=== PATIENT | female | born 1960 | race Caucasian/White ===

== ENCOUNTER 2016-08-06 13:41 | Inpatient (IN) ==
[2016-08-06] MEDS ORDERED: Naloxone 0.4 MG/ML INJ IVP PRN (16:44)
--- NOTE | 2016-08-06 17:02 | Internal Med History&Physical ---
Date of Encounter: 08/06/16 Time of Encounter: 16:30 Assessment and Plan (1) Acute osteomyelitis of right calcaneus Status: Acute Admit for osteomyelitits of right calcaneus. Dr. Freire to plan on taking patient to surgery on 08/08/16 for an I&D of the right calcanues and for specific bone biopsy and culture. Will start antibiotics after intraop cultures obtained. Wound care to include cleansing right heel daily with saline, pat dry, apply mesalt ribbon with 4x4 dry sterile gauze and kerlix. Keep right heel elevated away from direct pressure. (2) Hypertension Status: Chronic Hospitalist consulted. Qualifiers: Hypertension type: essential hypertension Qualified Code(s): I10 - Essential (primary) hypertension (3) COPD (chronic obstructive pulmonary disease) Status: Chronic Hospitalist consulted. Qualifiers: COPD type: unspecified COPD Qualified Code(s): J44.9 - Chronic obstructive pulmonary disease, unspecified (4) Pressure ulcer of left buttock, stage 3 Status: Acute Wound care consulted. Saline wet to dry gauze dressing applied. Internal Medicine - H&P: HPI Chief complaint: Osteomyelitis of right calcaneus Admitted From: Home Plans for Post Hospital Care: Home History of present illness: Ms. Jha is a 56 year old female admitted to [facility] on 08/06/16 for osteomyelitis of the right calcanues. Patient has a medical history significant for HTN, COPD, spina bifida, anxiety and depression. Patient has a surgical history of left BKA and a stoma. Patient states she self catheterizes herself. Patient was being treated in wound care by Dr. Freire for an ulceration to the right heel and was a direct admit today for a further workup and for specific bone biopsy and culture. Dr. Freire to plan on taking patient to surgery for an I&D on 08/08/16. Patient states ulceration of the right heel started a few months ago. Patient states she was being treated by Dr. Gerardo for a decubitus ulcer of the left buttocks and right heel. She was referred to Dr. Freire for regression of ulceration to the right. Patient states she is applying saline wet to dry dressings herself to the left buttocks. No c/o fever , chills, cp, sob or n/v/d. She states she is getting over some chest congestion. Past Med Surg Social Fam HX - Past Medical History Medical history: arthritis, COPD, hypertension, other (spina bifida) Psychiatric history: anxiety, depression - Past Surgical History Surgical History: other (Left foot amputation) - Social History Smoking Status: Current every day smoker Packs per day: 1 Smokeless Tobacco Status: No Alcohol use: rarely Drug use: none Current living situation: Home - Independent Activity Level: Other (uses a walking stick) - Family History Mother Name: caitlin Age: 76 Living Status: Still Living Hx Family Cardiac Disorders: No Hx Family Respiratory Disorders: No Hx Family Cancer: No Hx Family GI Disorders: No Hx Family Genitourinary Disorders: No Hx Family Endocrine Disorder: No Hx Family Musculoskeletal Disorders: No Hx Family Neuromuscular Disorders: No Hx Family Neurologic Disorders: No Hx Family HEENT Disorders: No Hx Family Autoimmune Disorders: No Hx Family Reproductive Disorders: No Hx Family Psychosocial Disorders: No Hx Family Medical Disorders: No Father Living Status: Age at : 57 Cause of : alcohol abuse; resp failure; heart failure Hx Family Cardiac Disorders: Yes Hx Family Respiratory Disorders: Yes Hx Family Cancer: No Hx Family GI Disorders: No Hx Family Genitourinary Disorders: No Hx Family Endocrine Disorder: No Hx Family Musculoskeletal Disorders: No Hx Family Neuromuscular Disorders: No Hx Family Neurologic Disorders: No Hx Family HEENT Disorders: No Hx Family Autoimmune Disorders: No Hx Family Reproductive Disorders: No Hx Family Psychosocial Disorders: No Hx Family Medical Disorders: No Internal Medicine - H&P: Meds Albuterol Sulfate [Proair Hfa] 1 - 2 puff IH Q6H PRN 01/17/16 [History] Alprazolam [Xanax 1 MG Tablet] 1 mg PO BID PRN 01/17/16 [History] Citalopram Hydrobromide [Celexa] 40 mg PO DAILY 01/17/16 [History] Cyclobenzaprine [Flexeril] 10 mg PO TID 01/17/16 [History] Ibuprofen [Advil] 200 mg PO TID PRN 01/17/16 [History] Oxybutynin Chloride [Ditropan Xl] 10 mg PO DAILY PRN 01/17/16 [History] Oxycodone HCl/Acetaminophen [Percocet 7.5-325 mg Tablet] 1 tab PO TID PRN [History] Temazepam [Restoril] 30 mg PO HS 01/17/16 [History] Varenicline Tartrate [Chantix] 1 mg PO BID 01/17/16 [History] BuPROPion XL (24 HR) [Wellbutrin Xl] 150 mg PO DAILY 08/06/16 [History] Losartan/Hydrochlorothiazide [Hyzaar 100-12.5 Tablet] 1 each PO DAILY 08/06/16 [ History] Oxycodone HCl/Acetaminophen [Percocet 5-325 mg Tablet] 1 each PO QID PRN #16 tablet 08/12/16 [Rx] Vancomycin [Vancocin] 1 each IV AD #14 vial 08/12/16 [Rx] Vancomycin [Vancocin] 1 each IV DAILY #21 vial 08/12/16 [Rx] Allergies morphine Allergy (Verified 04/19/15 08:57) Hives All Systems PM: A 10-system review of systems was performed and is negative for pertinent findings except as documented above in the HPI. - Constitutional Constitutional: no chills, no fever(s), no night sweats - EENT Eyes: no change in vision, no discharge, no pain, no photophobia Additional comments: wears upper dentures - Cardiovascular Cardiovascular ROS IM: no chest pain, no diaphoresis, no dyspnea, no lightheadedness, no palpitations - Respiratory Respiratory: no cough, no dyspnea, no wheezing Additional comments: states getting over chest congestion. - Gastrointestinal Gastrointestinal: no abdominal pain, no diarrhea, no nausea, no vomiting - Genitourinary Additional comments: self cath - Integumentary Integumentary IM: as per HPI - Neurological Neurological ROS: convulsions, no confusion, no numbness, no tingling - Psychiatric Psychiatric: anxiety, depression - Constitutional Vitals: Temp Pulse Resp BP Pulse Ox 97.8 F 86 18 119/85 97 08/06/16 15:30 08/06/16 15:30 08/06/16 15:30 08/06/16 15:30 08/06/16 15:30 General appearance: Present: A&O X 3, pleasant, no acute distress - Head Head exam: Present: atraumatic, normocephalic - Eye Eye exam: Present: PERRL, conjuntiva pink, sclera anicteric - ENT ENT exam: Present: normal exam - Respiratory Respiratory exam: Present: decreased breath sounds (to bilateral lower lobes ) - Cardiovascular Cardiovascular exam: Present: RRR, +S1, +S2 - GI/Abdominal GI/Abdominal exam: Present: normal bowel sounds, soft, no peritoneal signs. Absent: distended, tenderness - Expanded Lower Extremities Exam Ankle exam: Present: deformity (history of left foot amputation.) Foot/Toe exam: Present: swelling (Full thickness ulceration to the right calcanues, plantar aspect measuring 0.2 cm in length x 0.2 cm in width x 2.5 cm in depth, no periwound erythema, no purulent drainage, no odor, no warmth. . Weak plantar flexion of right foot. Epicritic and vibratory sensation intact. Pedal pulses 1+/4 DP right foot. ) - Skin Additional comments: Stage III decubitus ulcer to the left buttocks measuring 3 cm in length x 2 cm in width x 1.8 cm in depth, circumferential undermining 0.5 cm, tunneling at 10 o'clock measuring 1.5 cm. Base of wound is beefy red. No purulent drainage , no odor, no warmth. Internal Med - H&P Results - Labs CBC & Chem 7: 08/10/16 03:55 08/10/16 03:55
[2016-08-06 17:21] LABS: Basophils % 0.7 %; Eosinophils # 0.2 K/mcL (0.0-0.6); Hematocrit 35.7 % (35.3-44.9); Hemoglobin 11.2 g/dL (11.5-15.4); Immature Granulocytes % 0.8 % (0-4); Lymphocytes # 1.3 K/mcL (0.6-4.6); Lymphocytes % 22.1 %; Mean Corpuscular HGB Conc 31.4 g/dL (31.6-35.5); Mean Corpuscular Hemoglobin 28.3 pg (28.0-33.3); Mean Corpuscular Volume 90.2 fL (83.0-100.0); Mean Platelet Volume 8.8 fL (9.4-12.4); Monocytes # 0.6 K/mcL (0.0-1.3); Monocytes % 9.6 %; Neutrophils # 3.9 K/mcL (1.6-8.9); Platelet Count 445 K/mcL (140-400); Red Blood Count 3.96 M/mcL (3.82-4.97); Red Cell Distribution Width 13.2 % (11.5-14.5); Segmented Neutrophils % 63.8 %
[2016-08-06 17:36] LABS: BUN/Creatinine Ratio 26 (6-26); Blood Urea Nitrogen 20 mg/dL (7-20); Calcium 9.4 mg/dL (8.6-10.8); Carbon Dioxide 24 mEq/L (19-29); Chloride 106 mEq/L (98-109); Glucose 118 mg/dL (70-99); Osmolality,Calculated 294 (280-300); Potassium 3.8 mEq/L (3.5-4.5); Sodium 140 mEq/L (136-145); eGFR For African Americans > 60 (> 60); eGFR For Non-African Americans > 60 (> 60)
[2016-08-06] MEDS ORDERED: *HR* OxyCODONE/APAP 7.5/325 TABLET PO PRN ×2 (19:41→21:44)
[2016-08-06] MEDS ORDERED: Ibuprofen 200 MG TABLET PO PRN ×2 (21:44→22:01)
--- NOTE | 2016-08-06 21:58 | Internal Medicine Consult Note ---
Date of Encounter: 08/06/16 Time of Encounter: 21:55 - Assessment and Plan (1) Acute osteomyelitis of right calcaneus Current Visit: Yes Status: Acute Assessment and plan: Dr. Freire of Podiatry is planning debridement on 08/08. Continue home doses of Oxycodone/acetaminophen PRN for moderate pain and ibuprofen PRN for mild pain Narcan PRN for respiratory depression. (2) Hypertension Current Visit: Yes Status: Chronic Assessment and plan: Continue home doses of Losartan and HCTZ Qualifiers: Hypertension type: essential hypertension Qualified Code(s): I10 - Essential (primary) hypertension (3) COPD (chronic obstructive pulmonary disease) Current Visit: Yes Status: Chronic Assessment and plan: Patient is satting 95-97% on room air and denies any increased shortness of breath from her baseline. She does report some upper respiratory congestion. Continue home dose of PRN Albuterol. Duonebs Q6 hr PRN Incentive spirometry Mucinex 600mg BID Qualifiers: COPD type: unspecified COPD Qualified Code(s): J44.9 - Chronic obstructive pulmonary disease, unspecified (4) Depression Current Visit: Yes Status: Acute Assessment and plan: Continue home doses of Celexa and Wellbutrin Qualifiers: Depression Type: major depressive disorder Major depression recurrence: recurrent Active/Remission status: remission status unspecified Qualified Code(s): F33.9 - Major depressive disorder, recurrent, unspecified (5) Smoker Current Visit: Yes Status: Acute Assessment and plan: Patient smoked 1PPD since age 15. She is trying to quit, taking Chantix. Continue home dose of Chantix. (6) Anxiety Current Visit: Yes Status: Acute Assessment and plan: continue home dose of Xanax PRN. (7) DVT prophylaxis Current Visit: Yes Status: Acute Assessment and plan: Up to chair BID Sequential compression devices Internal Medicine - CN: HPI - Data of Consult Consult date: 08/06/16 Requesting Physician: Ancelmo Freire, - Consult Narrative Reason for consult: medical management History of present illness: Ms. Jha is a 56 year old female with hypertension, COPD, history of spina bifida, left BKA, right heel osteomyelitis who is admitted for planned debridement of right heel ulcer and bone biopsy and treatment of osteomyelitis under Dr. Freire's podiatry service. We have been consultative to manage her medical conditions while she is admitted. She reports she has little cough and congestion that is resolving. She reports occasional shortness of breath associated with her diagnosis of COPD, unchanged from her baseline. She denies any fever, chills, sweats, body aches. Patient self catheters 7 times a day and denies any dysuria or UTI symptoms at this time. Right heel ulcer has been examined and dressed by primary service as well as her stage III pressure ulcer on her buttocks. On exam, patient is alert and oriented, in no acute distress. Lungs are clear bilaterally to auscultation, heart has regular rate and rhythm. Past Med Surg Social Fam HX - Past Medical History Medical history: arthritis, COPD, hypertension, other (spina bifida) Psychiatric history: anxiety, depression - Past Surgical History Surgical History: other (Left BKA, multiple debridements, spine surgery, urostomy placement and takedown) - Social History Smoking Status: Current every day smoker Packs per day: 1 Smokeless Tobacco Status: No Alcohol use: rarely Drug use: none - Family History Mother Name: caitlin Age: 76 Living Status: Still Living Hx Family Cardiac Disorders: No Hx Family Respiratory Disorders: No Hx Family Cancer: No Hx Family GI Disorders: No Hx Family Genitourinary Disorders: No Hx Family Endocrine Disorder: No Hx Family Musculoskeletal Disorders: No Hx Family Neuromuscular Disorders: No Hx Family Neurologic Disorders: No Hx Family HEENT Disorders: No Hx Family Autoimmune Disorders: No Hx Family Reproductive Disorders: No Hx Family Psychosocial Disorders: No Hx Family Medical Disorders: No Father Living Status: Age at : 57 Cause of : alcohol abuse; resp failure; heart failure Hx Family Cardiac Disorders: Yes Hx Family Respiratory Disorders: Yes Hx Family Cancer: No Hx Family GI Disorders: No Hx Family Genitourinary Disorders: No Hx Family Endocrine Disorder: No Hx Family Musculoskeletal Disorders: No Hx Family Neuromuscular Disorders: No Hx Family Neurologic Disorders: No Hx Family HEENT Disorders: No Hx Family Autoimmune Disorders: No Hx Family Reproductive Disorders: No Hx Family Psychosocial Disorders: No Hx Family Medical Disorders: No - Constitutional Constitutional: no chills, no fever(s), no night sweats - EENT Eyes: no change in vision, no discharge, no pain Ears: no ear pain, no tinnitus Nose, mouth and throat: nasal congestion, nasal discharge, no sore throat - Cardiovascular Cardiovascular ROS IM: no chest pain, no dyspnea, no lightheadedness, no palpitations, no syncope - Respiratory Respiratory: cough, dyspnea on exertion, no wheezing, no chest congestion, no excessive phlegm production, no change in phlegm color - Gastrointestinal Gastrointestinal: no abdominal pain, no diarrhea, no loose stools, no melena, no nausea, no vomiting - Genitourinary Genitourinary: no dysuria, no hematuria - Musculoskeletal Musculoskeletal ROS IM: no muscle weakness, no numbness, no tingling - Integumentary Integumentary IM: non-healing lesions, skin ulcer - Neurological Neurological ROS: no confusion, no convulsions, no focal weakness, no numbness, no tingling - Hematologic/Lymphatic Hematologic/Lymphatic: no easy bruising Internal Medicine - CN: Meds Albuterol Sulfate [Proair Hfa] 1 - 2 puff IH Q6H PRN 01/17/16 [History] Alprazolam [Xanax 1 MG Tablet] 1 mg PO BID PRN 01/17/16 [History] Citalopram Hydrobromide [Celexa] 40 mg PO DAILY 01/17/16 [History] Cyclobenzaprine [Flexeril] 10 mg PO TID 01/17/16 [History] Ibuprofen [Advil] 200 mg PO TID PRN 01/17/16 [History] Oxybutynin Chloride [Ditropan Xl] 10 mg PO DAILY PRN 01/17/16 [History] Oxycodone HCl/Acetaminophen [Percocet 7.5-325 mg Tablet] 1 tab PO TID PRN [History] Temazepam [Restoril] 30 mg PO HS 01/17/16 [History] Varenicline Tartrate [Chantix] 1 mg PO BID 01/17/16 [History] BuPROPion XL (24 HR) [Wellbutrin XL] 150 mg PO DAILY 08/06/16 [History] Losartan/Hydrochlorothiazide [Hyzaar 100-12.5 Tablet] 1 each PO DAILY 08/06/16 [ History] Allergies morphine Allergy (Verified 04/19/15 08:57) Hives Internal Medicine - CN: Exam - Constitutional Vitals: Temp Pulse Resp BP Pulse Ox 98.2 F 104 18 138/62 95 08/06/16 19:30 08/06/16 19:30 08/06/16 19:30 08/06/16 19:30 08/06/16 19:30 General appearance IM: Present: A&O X 3, pleasant, no acute distress - Head Head exam: Present: atraumatic, normocephalic - Eye Eye exam: Present: PERRL, conjuntiva pink, sclera anicteric Pupils: Present: PERRL - ENT ENT exam: Present: mucous membranes moist - Neck Neck exam general surgery: Present: supple, trachea midline - Respiratory Respiratory exam: Present: CTAB. Absent: rales, respiratory distress, rhonchi, wheezes, tachypnea - Cardiovascular Cardiovascular exam IM: Present: RRR, +S1, +S2. Absent: bradycardia, clicks, gallop, tachycardia - GI/Abdominal GI/Abdominal exam IM: Present: normal bowel sounds, no peritoneal signs. Absent : distended, tenderness - Extremities Exam Extremities exam IM: Present: warm, radial pulses palpable and symetrical. Absent: calf tenderness, tenderness Additional comments: Left BKA just above ankle. right heel dressed and wrapped, dressing clean, dry and intact - Back Exam Additional comments: dressing intact on pressure ulcer. - Neurological Exam Neurological exam: Present: alert, CN II-XII intact, oriented X3, no focal deficits. Absent: facial droop, speech deficit Internal Medicine - CN: Reslt - Labs CBC & Chem 7: 08/06/16 17:08 08/06/16 17:08 Labs: Short CBC 08/06/16 Range/Units 17:08 WBC 6.1 (4.3-11.1) K/mcL Hgb 11.2 L (11.5-15.4) g/dL Hct 35.7 (35.3-44.9) % Plt Count 445 H (140-400) K/mcL Neutrophils # 3.9 (1.6-8.9) K/mcL BMP 08/06/16 17:08 Sodium 140 Potassium 3.8 Chloride 106 Carbon Dioxide 24 BUN 20 Creatinine 0.78 Glucose 118 H Calcium 9.4 Consult Discharge Plan - Plan Referrals: Leonardo Mayfield MD [Primary Care Provider] -
[2016-08-06] MEDS: *HR* OxyCODONE/APAP 7.5/325 TABLET PO PRN (22:47)
[2016-08-06] MEDS: ALPRAZolam 1 MG TABLET PO PRN (22:48)
[2016-08-06] MEDS ORDERED: Ipratropium/Albuterol Neb 3 ML IH PRN (23:00)
[2016-08-07] MEDS: hydroCHLOROthiazide 25 MG TABLET PO SCH (08:00)
[2016-08-07] MEDS: *HR* OxyCODONE/APAP 7.5/325 TABLET PO PRN ×2 (08:23→20:42)
[2016-08-07] MEDS ORDERED: NON-FORMULARY MEDICATION 1 EACH EACH (Losartan/Hydrochlorothiazide [Hyzaar 100-12.5 Tablet PO SCH (09:00)
[2016-08-07] MEDS ORDERED: BuPROPion XL (24 HR) 150 MG TABLET PO SCH (09:00)
[2016-08-07 09:10] LABS: Basophils % 0.6 %; Eosinophils # 0.2 K/mcL (0.0-0.6); Eosinophils % 3.2 %; Hematocrit 34.4 % (35.3-44.9); Hemoglobin 11.1 g/dL (11.5-15.4); Immature Granulocytes % 0.7 % (0-4); Lymphocytes # 1.7 K/mcL (0.6-4.6); Lymphocytes % 30.9 %; Mean Corpuscular HGB Conc 32.3 g/dL (31.6-35.5); Mean Corpuscular Hemoglobin 28.9 pg (28.0-33.3); Mean Corpuscular Volume 89.6 fL (83.0-100.0); Monocytes # 0.4 K/mcL (0.0-1.3); Monocytes % 7.4 %; Neutrophils # 3.1 K/mcL (1.6-8.9); Platelet Count 410 K/mcL (140-400); Red Blood Count 3.84 M/mcL (3.82-4.97); Red Cell Distribution Width 13.3 % (11.5-14.5); Segmented Neutrophils % 57.2 %
[2016-08-07 09:26] LABS: Alanine Aminotransferase 7 Units/L (0-55); Albumin 2.4 g/dL (3.5-5.0); Albumin/Globulin Ratio 0.5 (1.1-2.2); Alkaline Phosphatase 18 Units/L (38-126); Aspartate Amino Transferase 10 Units/L (5-34); BUN/Creatinine Ratio 22 (6-26); Bilirubin,Total 0.2 mg/dL (0.2-1.2); Blood Urea Nitrogen 17 mg/dL (7-20); Calcium 8.7 mg/dL (8.6-10.8); Carbon Dioxide 23 mEq/L (19-29); Chloride 107 mEq/L (98-109); Globulin 4.9 g/dL (2.4-3.5); Glucose 207 mg/dL (70-99); Osmolality,Calculated 294 (280-300); Potassium 3.4 mEq/L (3.5-4.5); Sodium 138 mEq/L (136-145); Total Protein 7.3 g/dL (6.0-8.3); eGFR For African Americans > 60 (> 60); eGFR For Non-African Americans > 60 (> 60)
--- NOTE | 2016-08-07 12:12 | Podiatry Progress Note ---
Date of Encounter: 08/07/16 Time of Encounter: 11:30 - Assessment and Plan (1) Acute osteomyelitis of right calcaneus Current Visit: Yes Status: Acute Admit for osteomyelitits of right calcaneus. Dr. Freire to plan on taking patient to surgery on 08/08/16 for an I&D of the right calcanues and for specific bone biopsy and culture. Will start antibiotics after intraop cultures obtained. Wound care to include cleansing right heel daily with saline, pat dry, apply mesalt ribbon with 4x4 dry sterile gauze and kerlix. Keep right heel elevated away from direct pressure. NPO after midnight. (2) Hypertension Current Visit: Yes Status: Chronic Hospitalist following. Qualifiers: Hypertension type: essential hypertension Qualified Code(s): I10 - Essential (primary) hypertension (3) COPD (chronic obstructive pulmonary disease) Current Visit: Yes Status: Chronic Hospitalist following. Qualifiers: COPD type: unspecified COPD Qualified Code(s): J44.9 - Chronic obstructive pulmonary disease, unspecified (4) Pressure ulcer of left buttock, stage 3 Current Visit: No Status: Acute Wound care consulted. Saline wet to dry gauze dressing applied by nurse today. Subjective Interval history: Patient is lying in bed with dressing dry and intact to right foot. Patient is scheduled to have an I&D of the right calcanues tomorrow 08/08/[address] Freire for osteomyelitis. Patient has a stage III decubitus ulcer to the left buttocks with a wet to dry dressing in place. Wound care was consulted yesterday and notified today. Patient states she has pain all over her body. She denies any fever, chills, cp, or sob. Objective - Vital Signs Vital Signs: Vital Signs Temp Pulse Resp BP Pulse Ox 08/07/16 10:55 97.5 F L 92 16 90/56 95 08/07/16 07:38 97.6 F 89 16 105/69 95 08/07/16 03:50 97.8 F 84 18 106/67 94 L 08/06/16 22:59 98.0 F 112 18 112/63 97 08/06/16 19:30 98.2 F 104 18 138/62 95 08/06/16 15:30 97.8 F 86 18 119/85 97 Intake and Output 08/06/16 08/07/16 08/07/16 23:59 07:59 15:59 Intake Total 240 / 240 Balance 240 / 240 Intake: Oral 240 / 240 Other: Meal Breakfast Percent of Meal Consumed 100% Weight 58 kg - Exam Exam: General: A&O x3, calm and pleasant. Ankle exam: Present: deformity (history of left foot amputation.) Foot/Toe exam: Dressing dry and intact to right foot. - Lab Result Diagrams: 08/07/16 08:55 08/07/16 08:55 Labs: Abnormal lab results Hgb 11.1 g/dL (11.5-15.4) L 08/07/16 08:55 Hct 34.4 % (35.3-44.9) L 08/07/16 08:55 Plt Count 410 K/mcL (140-400) H 08/07/16 08:55 MPV 9.0 fL (9.4-12.4) L 08/07/16 08:55 ESR 86 mm/hr (0-15) H 08/06/16 17:08 Potassium 3.4 mEq/L (3.5-4.5) L 08/07/16 08:55 Glucose 207 mg/dL (70-99) H 08/07/16 08:55 Alkaline Phosphatase 18 Units/L (38-126) L 08/07/16 08:55 C-Reactive Protein 27 mg/L (Less than 5) H 08/06/16 17:08 Albumin 2.4 g/dL (3.5-5.0) L 08/07/16 08:55 Globulin 4.9 g/dL (2.4-3.5) H 08/07/16 08:55 Albumin/Globulin Ratio 0.5 (1.1-2.2) L 08/07/16 08:55 Consult Discharge Plan - Plan Referrals: Leonardo Mayfield MD [Primary Care Provider] - 08/15/16 2:00 pm (Please follow up as schedule!!!)
--- NOTE | 2016-08-07 15:01 | Internal Med Progress Note ---
<Tucker Canales - Last Filed: 08/07/16 15:11> Date of Encounter: 08/07/16 Time of Encounter: 14:35 - Assessment and plan (1) Acute osteomyelitis of right calcaneus Current Visit: Yes Status: Acute Assessment and plan: Plan debridement tomorrow 08/08/2016, pain control with home dose oxycodone/ acetaminophen when necessary for moderate pain and ibuprofen when necessary for mild pain. Antibiotics held prior to debridement. (2) Depression Current Visit: Yes Status: Acute Assessment and plan: Continue Wellbutrin 150 mg by mouth QPM Celexa 40 mg by mouth daily Continue home dose Xanax 1 mg by mouth twice a day when necessary for anxiety Qualifiers: Depression Type: major depressive disorder Major depression recurrence: recurrent Active/Remission status: remission status unspecified Qualified Code(s): F33.9 - Major depressive disorder, recurrent, unspecified (3) COPD (chronic obstructive pulmonary disease) Current Visit: Yes Status: Chronic Assessment and plan: Patient history COPD, maintaining oxygen saturations greater than 90% on room air, does not appear to have any shortness of breath. Plan to continue home therapy. Plan: - Albuterol when necessary, DuoNeb's every 6 hours when necessary - Mucinex 600 mg twice a day - Incentive spirometry prior to procedure. Qualifiers: COPD type: unspecified COPD Qualified Code(s): J44.9 - Chronic obstructive pulmonary disease, unspecified (4) Hypertension Current Visit: Yes Status: Chronic Assessment and plan: Patient has history of hypertension, comfortable pressures are well controlled. Plan to hold antihypertensives prior to procedure. Plan: -Continue BP management with HCTZ and Cozaar, - Hold antihypertensives this evening prior to tomorrow's procedure. Qualifiers: Hypertension type: essential hypertension Qualified Code(s): I10 - Essential (primary) hypertension - Subjective Interval history: Ms. Jha has been seen and evaluated at patient bedside this am. She is doing well and without pain at this time. She says she has chronic back pain and only has pain in her right foot when ambulating. She is waiting for tomorrow's procedure for debridement and is curious what microorganisms may be growing. She has no further questions regarding her chronic medical conditions. - Constitutional Vitals: Temp Pulse Resp BP Pulse Ox 97.5 F L 92 16 90/56 95 08/07/16 10:55 08/07/16 10:55 08/07/16 10:55 08/07/16 10:55 08/07/16 10:55 General appearance: Present: A&O X 3, pleasant, no acute distress - Head Head exam: Present: atraumatic, normocephalic - Eye Eye exam: Present: PERRL, conjuntiva pink, sclera anicteric Pupils: Present: PERRL - Neck Neck exam general surgery: Present: supple, trachea midline. Absent: lymphadenopathy - Respiratory Respiratory exam: Present: CTAB. Absent: accessory muscle use, rales, rhonchi, wheezes - Cardiovascular Cardiovascular exam: Present: RRR, +S1, +S2. Absent: diastolic murmur, gallop, rubs, systolic murmur - GI/Abdominal GI/Abdominal exam: Present: normal bowel sounds, soft, no peritoneal signs. Absent: distended, tenderness - Extremities Exam Extremities exam: Present: pedal edema, warm Additional comments: Patient has BKA of the left lower extremity and right foot is wrapped with minimal drainage seeping through. Foot is deformed and 1+ edema. - Neurological Exam Neurological exam: Present: alert, no focal deficits, strengths equal and symetr throughout - Psychiatric Psychiatric exam: Present: normal affect, normal mood - Skin Skin exam: Present: dry Internal Medicine: Result - Labs CBC & Chem 7: 08/07/16 08:55 08/07/16 08:55 Labs: Short CBC 08/06/16 08/07/16 Range/Units 17:08 08:55 WBC 6.1 5.4 (4.3-11.1) K/mcL Hgb 11.2 L 11.1 L (11.5-15.4) g/dL Hct 35.7 34.4 L (35.3-44.9) % Plt Count 445 H 410 H (140-400) K/mcL Neutrophils # 3.9 3.1 (1.6-8.9) K/mcL BMP 08/06/16 08/07/16 17:08 08:55 Sodium 140 138 Potassium 3.8 3.4 L Chloride 106 107 Carbon Dioxide 24 23 BUN 20 17 Creatinine 0.78 0.76 Glucose 118 H 207 H Calcium 9.4 8.7 Liver Function 08/07/16 Range/Units 08:55 Total Bilirubin 0.2 (0.2-1.2) mg/dL AST 10 (5-34) Units/L ALT 7 (0-55) Units/L Alkaline Phosphatase 18 L (38-126) Units/L Albumin 2.4 L (3.5-5.0) g/dL Consult Discharge Plan - Plan Referrals: Leonardo Mayfield MD [Primary Care Provider] - 08/15/16 2:00 pm (Please follow up as schedule!!!) <Jerman Acuna - Last Filed: 08/07/16 18:45> - Assessment and plan (1) Hypertension Current Visit: Yes Status: Chronic Qualifiers: Hypertension type: essential hypertension Qualified Code(s): I10 - Essential (primary) hypertension (2) COPD (chronic obstructive pulmonary disease) Current Visit: Yes Status: Chronic Qualifiers: COPD type: unspecified COPD Qualified Code(s): J44.9 - Chronic obstructive pulmonary disease, unspecified (3) Smoker Current Visit: Yes Status: Acute (4) Anxiety Current Visit: Yes Status: Acute (5) Acute osteomyelitis of right calcaneus Current Visit: Yes Status: Acute - Constitutional Vitals: Temp Pulse Resp BP Pulse Ox 97.2 F L 94 17 102/62 94 L 08/07/16 15:10 08/07/16 15:10 08/07/16 15:10 08/07/16 15:10 08/07/16 15:10 Internal Medicine: Result - Labs CBC & Chem 7: 08/07/16 08:55 08/07/16 08:55 Labs: Short CBC 08/07/16 Range/Units 08:55 WBC 5.4 (4.3-11.1) K/mcL Hgb 11.1 L (11.5-15.4) g/dL Hct 34.4 L (35.3-44.9) % Plt Count 410 H (140-400) K/mcL Neutrophils # 3.1 (1.6-8.9) K/mcL BMP 08/07/16 08:55 Sodium 138 Potassium 3.4 L Chloride 107 Carbon Dioxide 23 BUN 17 Creatinine 0.76 Glucose 207 H Calcium 8.7 Liver Function 08/07/16 Range/Units 08:55 Total Bilirubin 0.2 (0.2-1.2) mg/dL AST 10 (5-34) Units/L ALT 7 (0-55) Units/L Alkaline Phosphatase 18 L (38-126) Units/L Albumin 2.4 L (3.5-5.0) g/dL - Attending Attestation I examined this patient and my medical decision-making was reviewed with the Resident Physician on 08/07/16. I agree with the documented findings, disposition and treatment plan as described except to the extent set forth below. Ms. Jha is feeling OK today. She has been admitted by podiatry for osteomyelitis of foot. Exam BP controlled Heart reg Lungs clear Abd soft I/P 1. HTN 2. Smoker 3. Osteo Pt denies CP with exertion. Low risk for OR tomorrow. Further diagnoses and plan as above.
--- NOTE | 2016-08-07 16:10 | Electrocardiograph Report ---
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
[2016-08-07] MEDS: BuPROPion XL (24 HR) 150 MG TABLET PO SCH (20:37)
[2016-08-07] MEDS: Temazepam 15 MG CAPSULE PO SCH (20:39)
[2016-08-07] MEDS: ALPRAZolam 1 MG TABLET PO PRN (20:51)
--- NOTE | 2016-08-07 23:27 | Anesthesia Evaluation PreOp ---
Date of Encounter: 08/08/16 Time of Encounter: 06:15 - Past History Planned Operation: I & D Right Heel Cardiac History: HTN Pulmonary History: Smoker (40 years), COPD [employer] History: Other (spina bifida) Other Medical History: Other (anxiety/depression) Anesthesia History: No Prior Anesthetic Complications, Past Anesthesia Alcohol Use: rarely Drug use: none Medications and Allergies Albuterol Sulfate [Proair Hfa] 1 - 2 puff IH Q6H PRN 01/17/16 [History] Alprazolam [Xanax 1 MG Tablet] 1 mg PO BID PRN 01/17/16 [History] Citalopram Hydrobromide [Celexa] 40 mg PO DAILY 01/17/16 [History] Cyclobenzaprine [Flexeril] 10 mg PO TID 01/17/16 [History] Ibuprofen [Advil] 200 mg PO TID PRN 01/17/16 [History] Oxybutynin Chloride [Ditropan Xl] 10 mg PO DAILY PRN 01/17/16 [History] Oxycodone HCl/Acetaminophen [Percocet 7.5-325 mg Tablet] 1 tab PO TID PRN [History] Temazepam [Restoril] 30 mg PO HS 01/17/16 [History] Varenicline Tartrate [Chantix] 1 mg PO BID 01/17/16 [History] BuPROPion XL (24 HR) [Wellbutrin XL] 150 mg PO DAILY 08/06/16 [History] Losartan/Hydrochlorothiazide [Hyzaar 100-12.5 Tablet] 1 each PO DAILY 08/06/16 [ History] Allergies morphine Allergy (Verified 04/19/15 08:57) Hives - Meds/Allergy Pre-op Review Medications Reviewed: Yes Allergies Reviewed: Yes Beta Blockers on Current Med List: No Anesthesia Results - Labs 08/07/16 08:55 08/08/16 06:33 - Imaging EKG: report reviewed (08/07/2016 SR) Additional studies: 11/26/2011 Stress Impression: Stress Note * Resting ECG demonstrated normal sinus rhythm. * No baseline arrhythmias were noted. * Pharmacologic stress ECG is non diagnostic for ischemia due to non-specific ST and T wave changes. * No arrhythmias were noted during stress * Patient had shortness of breath during stress. * Patient had no chest pain during stress. Hemodynamic response * The patient demonstrated normal blood pressure response. Study Quality/Desc. * Study quality is good. Gated EF % * Gated EF = >65% Left Ventricle * The left ventricle does not appear dilated. NORMALS * Normal segmental perfusion in stress. * Normal Segmental Perfusion in rest. TID * There is no evidence of transient ischemic dilatation Nuclear comments * Negative for ischemia or prior infarct. Anesthesia Exam Vital Signs/O2 Sat, Most Current Temp Pulse Resp BP Pulse Ox 97.9 F 89 17 131/83 95 08/08/16 04:21 08/08/16 04:21 08/08/16 04:21 08/08/16 04:21 08/08/16 04:21 Height: 5'5''/1.65 m Weight: 127 lbs/58 kg NPO (# of Hours): 8 Pain Scale: 0 Pain Scale Used: Numeric (1 - 10) - HEENT Pupil (Motor): EOMI Mallampati: II Teeth: Edentulous Oral Opening: Greater than 3 - [employer] Motor: Normal RUE, Normal LUE, Normal RLE, Normal Face, Deficit LLE [employer] Sensory: Normal: RUE, LUE, Face, Deficit: RLE, LLE - Cardiac Rhythm: Regular Murmur: None - Pulmonary Breath Sounds: bilateral Clear Respiratory Effort: Symmetrical Anesthesia Assess/Plan ASA Score: 3 Modified Anitha Scale for Level of Consciousness: Cooperative, oriented, and tranquil Anesthetic Plan: MAC Monitoring Plan: Standard Monitors Recovery Plan: Other
[2016-08-08 07:24] LABS: Alanine Aminotransferase 11 Units/L (0-55); Albumin 2.4 g/dL (3.5-5.0); Albumin/Globulin Ratio 0.5 (1.1-2.2); Alkaline Phosphatase 23 Units/L (38-126); Aspartate Amino Transferase 13 Units/L (5-34); BUN/Creatinine Ratio 29 (6-26); Bilirubin,Total 0.2 mg/dL (0.2-1.2); Blood Urea Nitrogen 18 mg/dL (7-20); Calcium 9.1 mg/dL (8.6-10.8); Carbon Dioxide 26 mEq/L (19-29); Chloride 107 mEq/L (98-109); Globulin 4.8 g/dL (2.4-3.5); Glucose 86 mg/dL (70-99); Osmolality,Calculated 293 (280-300); Potassium 4.2 mEq/L (3.5-4.5); Sodium 141 mEq/L (136-145); Total Protein 7.2 g/dL (6.0-8.3); eGFR For African Americans > 60 (> 60); eGFR For Non-African Americans > 60 (> 60)
[2016-08-08 07:32] LABS: Hematocrit 34.9 % (35.3-44.9); Hemoglobin 11.1 g/dL (11.5-15.4); Mean Corpuscular HGB Conc 31.8 g/dL (31.6-35.5); Mean Corpuscular Hemoglobin 28.5 pg (28.0-33.3); Mean Corpuscular Volume 89.7 fL (83.0-100.0); Platelet Count 402 K/mcL (140-400); Red Blood Count 3.89 M/mcL (3.82-4.97); Red Cell Distribution Width 13.2 % (11.5-14.5)
[2016-08-08] MEDS ORDERED: Lidocaine -MPF 4% 5 ML AMPUL ONE (08:38)
[2016-08-08] MEDS ORDERED: *HR* Rocuronium Bromide 50 MG/5 ML VIAL ONE (08:38)
[2016-08-08] MEDS ORDERED: *HR* FentaNYL (PF) 100 MCG/2 ML VIAL ONE (08:38)
[2016-08-08] MEDS ORDERED: Lidocaine -MPF 2% 2 ML VIAL ONE (08:38)
[2016-08-08] MEDS ORDERED: *HR* Promethazine 25 MG/ML VIAL IVP PRN (08:40)
[2016-08-08] MEDS ORDERED: *HR* Labetalol 100 MG/20 ML MDV IVP PRN (08:40)
[2016-08-08] MEDS ORDERED: *HR* HYDROmorphone (PF) 1 MG/ML SYRINGE IVP PRN (08:40)
[2016-08-08] MEDS ORDERED: Ringers Solution, Lactated 1,000 ML IVC SCH (08:45)
[2016-08-08] MEDS ORDERED: Dexamethasone 4 MG/ML VIAL ONE (08:45)
[2016-08-08] MEDS ORDERED: Ondansetron 4 MG/2 ML VIAL ONE (08:45)
[2016-08-08] MEDS ORDERED: *HR* Propofol 200 MG/20 ML VIAL IVP ONE (08:46)
[2016-08-08 09:16] LABS: Eosinophils # 0.4 K/mcL (0.0-0.6); Lymphocytes # 2.6 K/mcL (0.6-4.6); Monocytes # 0.2 K/mcL (0.0-1.3); Neutrophils # 2.7 K/mcL (1.6-8.9); Platelet Estimate Normal (Normal)
--- NOTE | 2016-08-08 09:55 | Orthopedic Operative Note ---
Date of procedure: 08/08/16 Pre-op diagnosis: Osteomyelitis right calcaneus Post-op diagnosis: same Procedure: 08/08/16 09:48 #1 incision and drainage to bone/cortex for osteomyelitis. #2 subtotal calcanectomy right calcaneus Implants: None Complications: None Anesthesia: GETA ( local ankle block) Local Anesthetics: 0.25% Sensorcaine HCL SubQ (cc) Surgeon: Ancelmo Freire Estimated blood loss (cc): 20 Tourniquet Time (Minutes): 0 Specimen: Bone fragments for culture, swab cultures 2 Condition: stable Disposition: PACU Procedure in Detail: 08/08/16 09:49 Details summary procedure: Patient brought to surgical suite. Sign in procedure performed. After smooth induction general endotracheal anesthesia was achieved patient was then placed in prone position and properly safely securely positioned on the bed. Posterior aspect of the right ankle was then prepped with alcohol 3 times in a modified ankle block was carried out without difficulty or complication. No tourniquet was used. Right foot and ankle were then prepped and draped usual sterile manner. Surgical timeout taken. Sinus tract was noted on the posterior lateral aspect calcaneus straight Ewing hemostat was placed within the sinus tract extending directly down to bone. A 15 cm incision was placed beginning at the superior posterior aspect calcaneus midline brought to the posterior plantar aspect of the calcaneus and then brought on a lateral attitude encompassing the sinus tract with elliptical incisions, which were placed excising the sinus tract incision was then extended medially and laterally. Leaving the Ewing hemostat within the sinus tract were able to completely excise the sinus tract directly down to the calcaneus. It was sent for gross and microscopic. Interestingly enough there is no evidence of active purulent drainage or necrosis. Dissection was continued with a #15 scalpel blade directly down the periosteum of the posterior aspect calcaneus at the distal insertion of the Achilles tendon. The level of periosteum full-thickness flap was developed medially and laterally. The bone was of normal color texture density superiorly. The bone plantarly was soft friable on the posterior inferior aspect calcaneus. The periosteum was isolated with a hill elevator medially laterally and inferiorly then using a Lambotte osteotome and mallet subtotal calcanectomy/osteotomy was performed from distal dorsal proximal to distal plantar inferior. Posterior inferior bone was resected. Then copious lavage with sterile saline. Then using ultrasonic Misonic debridement of the wound, I thoroughly debrided thnroughout with no active bleeding which would necessitate use of a ligature. A Bovie was used judiciously. Wound was thoroughly irrigated again with sterile saline closure was routine using 2-0 Vicryl anastomosing the deep fascia and subcutaneous tissue and skin repaired with interrupted sutures of 2-0 Prolene and skin tere. Note that wound cultures were taken immediately after partial resection of the calcaneus. Patient tolerated the procedure well. Wound was dressed with Adaptic 4 x 4's and Kerlix and Coban compressive dressing. Patient was then awoken and sent to PACU in good condition. Estimated blood loss less than 20 mL complications none. 08/13/16 17:18
--- NOTE | 2016-08-08 10:11 | Anesthesia Evaluation Post Op ---
Date of Encounter: 08/08/16 Time of Encounter: 10:11 - Vital Signs Vital Signs: Vital Signs/O2 Sat, Most Current Temp Pulse Resp BP Pulse Ox 97.8 F 81 14 126/90 97 08/08/16 09:49 08/08/16 09:59 08/08/16 09:59 08/08/16 09:59 08/08/16 09:59 - Lungs Lungs: Clear Ascult./Percussion - Airway Airway: Non-obstructed - Cardiovascular Regular Rate - Mental Status Mental Status: Alert & Oriented, Answers Appropriately - Pain Pain Scale: 0 Pain Scale used: Numeric (1 - 10) - Nausea Vomiting Nausea Vomiting: Not Present - Hydration Hydration: Ice chips, Has not voided - Discharge PostOp Status: Transfer Patient to floor
[2016-08-08] MEDS: *HR* OxyCODONE/APAP 7.5/325 TABLET PO PRN ×2 (10:45→20:57)
[2016-08-08] MEDS: hydroCHLOROthiazide 25 MG TABLET PO SCH (10:46)
[2016-08-08] MEDS ORDERED: Bupivacaine/Clonidine Syringe 1 EACH SYRINGE ONE (11:28)
--- NOTE | 2016-08-08 14:13 | Internal Med Progress Note ---
<Tucker Canales - Last Filed: 08/08/16 15:51> Date of Encounter: 08/08/16 Time of Encounter: 14:13 - Assessment and plan (1) Acute osteomyelitis of right calcaneus Current Visit: Yes Status: Acute Assessment and plan: Patient status post debridement of right calcaneus 08/08/2016. Antibiotics to be started per podiatry. (2) Depression Current Visit: Yes Status: Acute Assessment and plan: Continue Wellbutrin 150 mg by mouth QPM Celexa 40 mg by mouth daily Continue home dose Xanax 1 mg by mouth twice a day when necessary for anxiety Qualifiers: Depression Type: major depressive disorder Major depression recurrence: recurrent Active/Remission status: remission status unspecified Qualified Code(s): F33.9 - Major depressive disorder, recurrent, unspecified (3) COPD (chronic obstructive pulmonary disease) Current Visit: Yes Status: Chronic Assessment and plan: Patient history COPD, maintaining oxygen saturations greater than 90% on room air, does not appear to have any shortness of breath. Plan to continue home therapy. Plan: - Albuterol when necessary, DuoNeb's every 6 hours when necessary - Mucinex 600 mg twice a day - Incentive spirometry prior to procedure. Qualifiers: COPD type: unspecified COPD Qualified Code(s): J44.9 - Chronic obstructive pulmonary disease, unspecified (4) Hypertension Current Visit: Yes Status: Chronic Assessment and plan: Patient has history of hypertension, patient status post debridement of right calcaneus and presents with low blood pressure. She is asymptomatic currently. Patient becomes symptomatic her blood pressure does not improve will give 1 L normal saline bolus. Plan: -Continue BP management with HCTZ and Cozaar, with stable blood pressures. Qualifiers: Hypertension type: essential hypertension Qualified Code(s): I10 - Essential (primary) hypertension - Subjective Interval history: Ms. Jha has been seen and evaluated at patient bedside this am. She is doing well and without pain at this time post right foot debridement. She says her foot is still numb from the block. She is packing her gluteal decubitus ulcer. She denies any further concerns and is awaiting antibiotic treatment. - Constitutional Vitals: Temp Pulse Resp BP Pulse Ox 97.7 F 80 14 86/53 94 L 08/08/16 12:06 08/08/16 12:06 08/08/16 12:06 08/08/16 12:06 08/08/16 12:06 General appearance: Present: A&O X 3, pleasant, no acute distress - Head Head exam: Present: atraumatic, normocephalic - Eye Eye exam: Present: PERRL, conjuntiva pink, sclera anicteric Pupils: Present: PERRL - Neck Neck exam general surgery: Present: supple, trachea midline. Absent: lymphadenopathy - Respiratory Respiratory exam: Present: CTAB. Absent: accessory muscle use, rales, rhonchi, wheezes - Cardiovascular Cardiovascular exam: Present: RRR, +S1, +S2. Absent: diastolic murmur, gallop, rubs, systolic murmur - GI/Abdominal GI/Abdominal exam: Present: normal bowel sounds, soft, no peritoneal signs. Absent: distended, tenderness - Extremities Exam Extremities exam: Present: warm, radial pulses palpable and symetrical. Absent : calf tenderness, cyanotic, pedal edema Additional comments: Patient has below the knee amputation on the left and right foot post debridement wrapped with surgical dressings, skin is pink with appropriate capillary refill. - Neurological Exam Neurological exam: Present: alert, oriented X3, no focal deficits. Absent: pronater drift, facial droop, speech deficit - Psychiatric Psychiatric exam: Present: normal affect, normal mood - Skin Skin exam: Present: dry Internal Medicine: Result - Labs CBC & Chem 7: 08/08/16 06:33 08/08/16 06:33 Labs: Short CBC 08/08/16 Range/Units 06:33 WBC 5.9 (4.3-11.1) K/mcL Hgb 11.1 L (11.5-15.4) g/dL Hct 34.9 L (35.3-44.9) % Plt Count 402 H (140-400) K/mcL Neutrophils # 2.7 (1.6-8.9) K/mcL BMP 08/08/16 06:33 Sodium 141 Potassium 4.2 Chloride 107 Carbon Dioxide 26 BUN 18 Creatinine 0.62 Glucose 86 Calcium 9.1 Liver Function 08/08/16 Range/Units 06:33 Total Bilirubin 0.2 (0.2-1.2) mg/dL AST 13 (5-34) Units/L ALT 11 (0-55) Units/L Alkaline Phosphatase 23 L (38-126) Units/L Albumin 2.4 L (3.5-5.0) g/dL - Impressions Impressions Foot X-Ray 08/08/16 08:56 IMPRESSION: Interval partial osteotomy of the posterior calcaneus with postoperative changes, as detailed above. D/ / Zenon Haskins MD / Zenon Haskins MD Interpreting Provider: Zenon Haskins MD Consult Discharge Plan - Plan Referrals: Leonardo Mayfield MD [Primary Care Provider] - 08/15/16 2:00 pm (Please follow up as schedule!!!) <Jerman Acuna - Last Filed: 08/08/16 18:41> - Assessment and plan (1) Hypertension Current Visit: Yes Status: Chronic Qualifiers: Hypertension type: essential hypertension Qualified Code(s): I10 - Essential (primary) hypertension (2) COPD (chronic obstructive pulmonary disease) Current Visit: Yes Status: Chronic Qualifiers: COPD type: unspecified COPD Qualified Code(s): J44.9 - Chronic obstructive pulmonary disease, unspecified (3) Smoker Current Visit: Yes Status: Acute (4) Anxiety Current Visit: Yes Status: Acute (5) Acute osteomyelitis of right calcaneus Current Visit: Yes Status: Acute - Constitutional Vitals: Temp Pulse Resp BP Pulse Ox 98.0 F 102 16 108/72 97 08/08/16 16:42 08/08/16 16:42 08/08/16 16:42 08/08/16 16:42 08/08/16 16:42 Internal Medicine: Result - Labs CBC & Chem 7: 08/08/16 06:33 08/08/16 06:33 Labs: Short CBC 08/08/16 Range/Units 06:33 WBC 5.9 (4.3-11.1) K/mcL Hgb 11.1 L (11.5-15.4) g/dL Hct 34.9 L (35.3-44.9) % Plt Count 402 H (140-400) K/mcL Neutrophils # 2.7 (1.6-8.9) K/mcL BMP 08/08/16 06:33 Sodium 141 Potassium 4.2 Chloride 107 Carbon Dioxide 26 BUN 18 Creatinine 0.62 Glucose 86 Calcium 9.1 Liver Function 08/08/16 Range/Units 06:33 Total Bilirubin 0.2 (0.2-1.2) mg/dL AST 13 (5-34) Units/L ALT 11 (0-55) Units/L Alkaline Phosphatase 23 L (38-126) Units/L Albumin 2.4 L (3.5-5.0) g/dL Urine 08/08/16 Range/Units 14:00 Urine Color Yellow (Yellow) Urine Clarity Turbid A (Clear) Urine pH 7.5 (5.0-8.0) pH Units Ur Specific [place] 1.008 L (1.010-1.025) Urine Protein 30 H (Neg-Trace) mg/dL Urine Glucose (UA) Normal (Normal) mg/dL - Impressions Impressions Foot X-Ray 08/08/16 08:56 IMPRESSION: Interval partial osteotomy of the posterior calcaneus with postoperative changes, as detailed above. D/ / Zenon Haskins MD / Zenon Haskins MD Interpreting Provider: Zenon Haskins MD - Attending Attestation I examined this patient and my medical decision-making was reviewed with the Resident Physician on 08/08/16. I agree with the documented findings, disposition and treatment plan as described except to the extent set forth below. Ms. Jha is currently admitted for acute osteomyelitis. She is moderate risk at this time due to potential medical complications. Ms. Jha had surgery today. She is resting comfortably. No new medical issues. Exam Alert. Comfortable Heart reg No wheeze I/P 1. HTN 2. Spina bifida Further diagnoses and plan as above.
[2016-08-08 14:28] LABS: Bilirubin,Urine Negative (Negative); Blood,Urine Moderate (Negative); Clarity,Urine Turbid (Clear); Color,Urine Yellow (Yellow); Glucose,Urine (UA) Normal (Normal); Ketones,Urine Negative (Negative); Leukocyte Esterase,Urine Large (Negative); Nitrite,Urine Negative (Negative); PH,Urine 7.5 pH Units (5.0-8.0); Protein,Urine 30 mg/dL (Neg-Trace); Specific Gravity,Urine 1.008 (1.010-1.025); Urobilinogen,Urine Normal (Normal)
[2016-08-08 14:30] LABS: Bacteria,Urine Many per hpf (None-Few); Mucus,Urine Many (Few); Squamous Epithelial Cell,Urine Few per lpf (None-Few); WBC,Urine 50-100 per hpf (0-3)
[2016-08-08] MEDS: BuPROPion XL (24 HR) 150 MG TABLET PO SCH (20:56)
[2016-08-08] MEDS: ALPRAZolam 1 MG TABLET PO PRN (20:57)
[2016-08-09] MEDS: Temazepam 15 MG CAPSULE PO SCH (00:23)
[2016-08-09] MEDS: *HR* OxyCODONE/APAP 7.5/325 TABLET PO PRN ×3 (04:24→21:11)
[2016-08-09 06:54] LABS: Alanine Aminotransferase 11 Units/L (0-55); Albumin 2.3 g/dL (3.5-5.0); Albumin/Globulin Ratio 0.5 (1.1-2.2); Alkaline Phosphatase 18 Units/L (38-126); Aspartate Amino Transferase 13 Units/L (5-34); BUN/Creatinine Ratio 29 (6-26); Bilirubin,Total 0.1 mg/dL (0.2-1.2); Blood Urea Nitrogen 19 mg/dL (7-20); Carbon Dioxide 26 mEq/L (19-29); Chloride 104 mEq/L (98-109); Globulin 4.2 g/dL (2.4-3.5); Glucose 91 mg/dL (70-99); Osmolality,Calculated 286 (280-300); Potassium 3.9 mEq/L (3.5-4.5); Sodium 137 mEq/L (136-145); Total Protein 6.5 g/dL (6.0-8.3); eGFR For African Americans > 60 (> 60); eGFR For Non-African Americans > 60 (> 60)
[2016-08-09 07:35] LABS: Basophils % 0.4 %; Eosinophils # 0.1 K/mcL (0.0-0.6); Eosinophils % 1.6 %; Hemoglobin 9.3 g/dL (11.5-15.4); Immature Granulocytes % 0.7 % (0-4); Immature Platelets 1.6 % (1.1-6.1); Lymphocytes # 2.1 K/mcL (0.6-4.6); Mean Corpuscular Volume 90.4 fL (83.0-100.0); Mean Platelet Volume 8.9 fL (9.4-12.4); Monocytes # 0.5 K/mcL (0.0-1.3); Neutrophils # 4.7 K/mcL (1.6-8.9); Platelet Count 427 K/mcL (140-400); Red Blood Count 3.32 M/mcL (3.82-4.97); Red Cell Distribution Width 13.2 % (11.5-14.5); Segmented Neutrophils % 62.3 %
[2016-08-09 07:59] LABS: Platelet Estimate Increased (Normal)
[2016-08-09] MEDS: hydroCHLOROthiazide 25 MG TABLET PO SCH (08:11)
[2016-08-09] MEDS: ALPRAZolam 1 MG TABLET PO PRN ×2 (08:18→21:11)
--- NOTE | 2016-08-09 08:51 | Internal Med Progress Note ---
<Tucker Canales - Last Filed: 08/09/16 09:25> Date of Encounter: 08/09/16 Time of Encounter: 08:48 - Assessment and plan (1) Acute osteomyelitis of right calcaneus Current Visit: Yes Status: Acute Assessment and plan: Patient status post debridement of right calcaneus 08/08/2016. Antibiotics to be started per podiatry. (2) Depression Current Visit: Yes Status: Acute Assessment and plan: Continue Wellbutrin 150 mg by mouth QPM Celexa 40 mg by mouth daily Continue home dose Xanax 1 mg by mouth twice a day when necessary for anxiety Qualifiers: Depression Type: major depressive disorder Major depression recurrence: recurrent Active/Remission status: remission status unspecified Qualified Code(s): F33.9 - Major depressive disorder, recurrent, unspecified (3) COPD (chronic obstructive pulmonary disease) Current Visit: Yes Status: Chronic Assessment and plan: Patient history COPD, maintaining oxygen saturations greater than 90% on room air, does not appear to have any shortness of breath. Plan to continue home therapy. - No change from yesterday. Plan: - Albuterol when necessary, DuoNeb's every 6 hours when necessary - Mucinex 600 mg twice a day - Incentive spirometry prior to procedure. Qualifiers: COPD type: unspecified COPD Qualified Code(s): J44.9 - Chronic obstructive pulmonary disease, unspecified (4) Hypertension Current Visit: Yes Status: Chronic Assessment and plan: Patient has history of hypertension, patient status post debridement of right calcaneus and presents with stable blood pressure. Plan: -Continue BP management with HCTZ and Cozaar, with stable blood pressures. Qualifiers: Hypertension type: essential hypertension Qualified Code(s): I10 - Essential (primary) hypertension - Subjective Interval history: Ms. Jha has been seen and evaluated at patient bedside this am. She is doing well and without pain at this time post-op day 1 right foot debridement . She says that her pain is controlled with PO pain medications. She is packing her gluteal decubitus ulcer. She is tolerating PO intake, having a bowel movement and passing gas. She denies any further concerns and is awaiting antibiotic treatment. - Constitutional Vitals: Temp Pulse Resp BP Pulse Ox 98.4 F 81 16 130/77 96 08/09/16 07:54 08/09/16 07:54 08/09/16 07:54 08/09/16 07:54 08/09/16 07:54 General appearance: Present: A&O X 3, pleasant, no acute distress - Head Head exam: Present: atraumatic, normocephalic - Eye Eye exam: Present: PERRL, conjuntiva pink, sclera anicteric Pupils: Present: PERRL - Neck Neck exam general surgery: Present: supple, trachea midline. Absent: lymphadenopathy - Respiratory Respiratory exam: Present: CTAB. Absent: accessory muscle use, rales, rhonchi, wheezes - Cardiovascular Cardiovascular exam: Present: RRR, +S1, +S2. Absent: diastolic murmur, gallop, rubs, systolic murmur - GI/Abdominal GI/Abdominal exam: Present: normal bowel sounds, soft, no peritoneal signs. Absent: distended, tenderness - Extremities Exam Extremities exam: Present: warm, radial pulses palpable and symetrical. Absent : calf tenderness, cyanotic, pedal edema - Neurological Exam Neurological exam: Present: alert, oriented X3, no focal deficits. Absent: pronater drift, facial droop, speech deficit - Psychiatric Psychiatric exam: Present: normal affect, normal mood Internal Medicine: Result - Labs CBC & Chem 7: 08/09/16 07:00 08/09/16 06:01 Labs: Short CBC 08/08/16 08/09/16 Range/Units 06:33 07:00 WBC 7.5 (4.3-11.1) K/mcL Hgb 9.3 L D (11.5-15.4) g/dL Hct 30.0 L (35.3-44.9) % Plt Count 427 H (140-400) K/mcL Neutrophils # 2.7 4.7 (1.6-8.9) K/mcL BMP 08/09/16 06:01 Sodium 137 Potassium 3.9 Chloride 104 Carbon Dioxide 26 BUN 19 Creatinine 0.66 Glucose 91 Calcium 9.0 Liver Function 08/09/16 Range/Units 06:01 Total Bilirubin 0.1 L (0.2-1.2) mg/dL AST 13 (5-34) Units/L ALT 11 (0-55) Units/L Alkaline Phosphatase 18 L (38-126) Units/L Albumin 2.3 L (3.5-5.0) g/dL Urine 08/08/16 Range/Units 14:00 Urine Color Yellow (Yellow) Urine Clarity Turbid A (Clear) Urine pH 7.5 (5.0-8.0) pH Units Ur Specific [place] 1.008 L (1.010-1.025) Urine Protein 30 H (Neg-Trace) mg/dL Urine Glucose (UA) Normal (Normal) mg/dL - Impressions Impressions Foot X-Ray 08/08/16 08:56 IMPRESSION: Interval partial osteotomy of the posterior calcaneus with postoperative changes, as detailed above. D/ / Zenon Haskins MD / Zenon Haskins MD Interpreting Provider: Zenon Haskins MD Consult Discharge Plan - Plan Referrals: Leonardo Mayfield MD [Primary Care Provider] - 08/15/16 2:00 pm (Please follow up as schedule!!!) <Jerman Acuna - Last Filed: 08/09/16 17:15> - Assessment and plan (1) Hypertension Current Visit: Yes Status: Chronic Qualifiers: Hypertension type: essential hypertension Qualified Code(s): I10 - Essential (primary) hypertension (2) COPD (chronic obstructive pulmonary disease) Current Visit: Yes Status: Chronic Qualifiers: COPD type: unspecified COPD Qualified Code(s): J44.9 - Chronic obstructive pulmonary disease, unspecified (3) Smoker Current Visit: Yes Status: Acute (4) Anxiety Current Visit: Yes Status: Chronic (5) Acute osteomyelitis of right calcaneus Current Visit: Yes Status: Acute - Constitutional Vitals: Temp Pulse Resp BP Pulse Ox 98.5 F 88 16 93/57 96 08/09/16 15:16 08/09/16 15:16 08/09/16 15:16 08/09/16 15:16 08/09/16 15:16 Internal Medicine: Result - Labs CBC & Chem 7: 08/09/16 07:00 08/09/16 06:01 Labs: Short CBC 08/09/16 Range/Units 07:00 WBC 7.5 (4.3-11.1) K/mcL Hgb 9.3 L D (11.5-15.4) g/dL Hct 30.0 L (35.3-44.9) % Plt Count 427 H (140-400) K/mcL Neutrophils # 4.7 (1.6-8.9) K/mcL BMP 08/09/16 06:01 Sodium 137 Potassium 3.9 Chloride 104 Carbon Dioxide 26 BUN 19 Creatinine 0.66 Glucose 91 Calcium 9.0 Liver Function 08/09/16 Range/Units 06:01 Total Bilirubin 0.1 L (0.2-1.2) mg/dL AST 13 (5-34) Units/L ALT 11 (0-55) Units/L Alkaline Phosphatase 18 L (38-126) Units/L Albumin 2.3 L (3.5-5.0) g/dL - Impressions Impressions Foot X-Ray 08/08/16 08:56 IMPRESSION: Interval partial osteotomy of the posterior calcaneus with postoperative changes, as detailed above. D/ / Zenon Haskins MD / Zenon Haskins MD Interpreting Provider: Zenon Haskins MD - Attending Attestation I examined this patient and my medical decision-making was reviewed with the Resident Physician on 08/09/16. I agree with the documented findings, disposition and treatment plan as described except to the extent set forth below. Ms. Jha is currently admitted for osteomyelitis of the foot. Ms. Jha feels OK at this time. No new medical issues. Exam Alert. Comfortable Heart reg No wheeze I/P 1. HTN - controlled 2. Osteomyelitis Further diagnoses and plan as above.
--- NOTE | 2016-08-09 11:53 | Infectious Disease Consult ---
Date of Encounter: 08/09/16 Time of Encounter: 11:49 Assessment and Plan (1) Acute osteomyelitis of right calcaneus Status: Acute Assessment and plan: Location: Right heel. Likely secondary to pressure injury with infection. Causative organism unclear. Intra-operative cultures are pending. ESR 86, CRP 27. Status post I & D to the bone/cortex for OM and right calcanectomy 08/08/[address] Freire. Operative report reviewed. The patient has had no SIRS criteria. Start Vancomycin IV. Pharmacy to dose. Goal trough approximately 15. Start Zosyn 3.375 grams IV Q8H. De-escalate based on culture results. Duration of treatment depends on the clinical picture, but likely 6 weeks of IV antibiotics will be required. Monitor renal function and for drug toxicity and dose-adjust antibiotics. Consult VAT for PICC line placement. Consult social service liaison to assist with discharge planning. Weekly CBC, BMP, ESR, CRP, and Vanc trough if needed. Weekly PICC care per protocol. Follow up with ID 2 weeks post-discharge. (2) Injury of right heel Status: Acute Assessment and plan: Secondary to pressure ulcer. Continue wound care as outlined by the podiatry team. Qualifiers: Encounter type: initial encounter Qualified Code(s): S99.921A - Unspecified injury of right foot, initial encounter (3) Pressure ulcer of left buttock, stage 3 Status: Acute Assessment and plan: Does not appear infected. Continue local wound care and offloading as outlined per the wound care team. (4) Hypertension Status: Chronic Qualifiers: Hypertension type: essential hypertension Qualified Code(s): I10 - Essential (primary) hypertension (5) COPD (chronic obstructive pulmonary disease) Status: Chronic Qualifiers: COPD type: unspecified COPD Qualified Code(s): J44.9 - Chronic obstructive pulmonary disease, unspecified (6) Depression Status: Chronic Qualifiers: Depression Type: major depressive disorder Major depression recurrence: recurrent Active/Remission status: remission status unspecified Qualified Code(s): F33.9 - Major depressive disorder, recurrent, unspecified (7) Anxiety Status: Chronic Infectious Disease HPI - Data of Consult Patient: new to practice Consult date: 08/09/16 Requesting Physician: Ancelmo Freire, Primary Care Provider: Leonardo Mayfield MD - Consult Narrative Reason for consult: Osteomyelitis right calcaneus History of present illness: Ms. Jha is a 56 year old female with a past medical history of spina bifida, hypertension, COPD, neurogenic bladder, status post left BKA. The patient was admitted to the hospital August 06 for right calcaneus osteomyelitis. We're consulted August 09 for further evaluation and treatment recommendations regarding right calcaneus osteomyelitis. The patient is a 26-year-old female with past medical history as stated above. The patient reports an onset of a wound to the right heel approximately 2 months ago. She states she has been seen by Dr. Freire in the wound care clinic a few times. She reports that the wound had healed, but there is a sinus tract that tunneled all the way to the bone. Review of the medical record reveals an x -ray back on July 24 that showed findings consistent with osteomyelitis. The patient was seen in the wound clinic on July 31 and instructed to come back to the hospital on August 06 for admission and likely surgery. The patient presented as a direct admission. Upon arrival, she was afebrile hemodynamically stable. Laboratory studies reveal a normal white blood cell count. Her ESR and CRP are elevated at 86 and 27 respectively. No renal function issues noted. Since admission, the patient has gone to surgery and underwent an I&D to the bone/cortex for osteomyelitis and a subtotal right calcanectomy on August [address] Freire. Intraoperative cultures are pending. The patient has not been on any antibiotics. She has remained afebrile. Her white blood cell count has remained normal. She has no sepsis criteria. We've been asked to evaluate and make further recommendations. During my exam today, the patient endorses a history as stated above. She denies any fevers or chills or rigors. She reports chronic neck pain and headaches, states this is nothing out of the ordinary. She reports some chest congestion recently with a productive cough with green sputum. She denies any nasal congestion, earache, or sore throat. She denies chest pain. She reports shortness of breath that is at her baseline secondary to her COPD. She denies nausea, vomiting, diarrhea, or constipation. The patient requires self- catheterization secondary to neurogenic bladder. She complains of pain in the right lower extremity at the surgical site. She also complains of chronic back pain. Otherwise, she denies any pain at this time. She denies the oral thrush or new skin lesions. CC: Ancelmo Freire, Past Med Surg Social Fam HX - Past Medical History Attestation: Yes The following information was validated with the patient. Source: patient, old records reviewed, nursing notes reviewed Medical history: arthritis, COPD, hypertension, other (spina bifida, neurogenic bladder) Psychiatric history: anxiety, depression - Past Surgical History Surgical History: other (Left foot amputation, ileocecal conduit with reversal, multiple bilateral lower extremity surgeries) - Social History Smoking Status: Current every day smoker Packs per day: 1 Smokeless Tobacco Status: No Alcohol use: rarely Drug use: none Occupational status: disabled Current living situation: Home - Independent Activity Level: Uses cane/walker Recent Out of Country Travel Within the Last 8 Weeks: No Exposure or Possible Exposure to Illness During Travel: No - Family History Mother Name: caitlin Age: 76 Living Status: Still Living Hx Family Cardiac Disorders: No Hx Family Respiratory Disorders: No Hx Family Cancer: No Hx Family GI Disorders: No Hx Family Genitourinary Disorders: No Hx Family Endocrine Disorder: No Hx Family Musculoskeletal Disorders: No Hx Family Neuromuscular Disorders: No Hx Family Neurologic Disorders: No Hx Family HEENT Disorders: No Hx Family Autoimmune Disorders: No Hx Family Reproductive Disorders: No Hx Family Psychosocial Disorders: No Hx Family Medical Disorders: No Father Living Status: Age at : 57 Cause of : alcohol abuse; resp failure; heart failure Hx Family Cardiac Disorders: Yes Hx Family Respiratory Disorders: Yes Hx Family Cancer: No Hx Family GI Disorders: No Hx Family Genitourinary Disorders: No Hx Family Endocrine Disorder: No Hx Family Musculoskeletal Disorders: No Hx Family Neuromuscular Disorders: No Hx Family Neurologic Disorders: No Hx Family HEENT Disorders: No Hx Family Autoimmune Disorders: No Hx Family Reproductive Disorders: No Hx Family Psychosocial Disorders: No Hx Family Medical Disorders: No Infectious Disease-CN:Meds Albuterol Sulfate [Proair Hfa] 1 - 2 puff IH Q6H PRN 01/17/16 [History] Alprazolam [Xanax 1 MG Tablet] 1 mg PO BID PRN 01/17/16 [History] Citalopram Hydrobromide [Celexa] 40 mg PO DAILY 01/17/16 [History] Cyclobenzaprine [Flexeril] 10 mg PO TID 01/17/16 [History] Ibuprofen [Advil] 200 mg PO TID PRN 01/17/16 [History] Oxybutynin Chloride [Ditropan Xl] 10 mg PO DAILY PRN 01/17/16 [History] Oxycodone HCl/Acetaminophen [Percocet 7.5-325 mg Tablet] 1 tab PO TID PRN [History] Temazepam [Restoril] 30 mg PO HS 01/17/16 [History] Varenicline Tartrate [Chantix] 1 mg PO BID 01/17/16 [History] BuPROPion XL (24 HR) [Wellbutrin XL] 150 mg PO DAILY 08/06/16 [History] Losartan/Hydrochlorothiazide [Hyzaar 100-12.5 Tablet] 1 each PO DAILY 08/06/16 [ History] Allergies morphine Allergy (Verified 04/19/15 08:57) Hives All systems: reviewed and no additional remarkable complaints except as stated Exam - Constitutional Vitals: Temp Pulse Resp BP Pulse Ox 98.5 F 97 16 124/92 97 08/09/16 11:21 08/09/16 11:21 08/09/16 11:21 08/09/16 11:21 08/09/16 11:21 General appearance: average body habitus, cooperative, no acute distress - Head Head exam: Present: atraumatic, normal inspection, normocephalic - Eye Eye exam: Present: EOMI, normal appearance, PERRL Pupils: Present: normal accommodation - ENT ENT exam: Present: mucous membranes moist - Neck Neck exam: Present: normal inspection - Respiratory Respiratory exam: Present: CTAB. Absent: rales, respiratory distress, rhonchi, wheezes - Cardiovascular Cardiovascular exam: Present: RRR, +S1, +S2 - GI/Abdominal GI/Abdominal exam: Present: normal bowel sounds, soft. Absent: distended, tenderness - Extremities Exam Extremities exam: Present: pedal edema (Trace right lower extremity ), tenderness (Right foot ). Absent: joint swelling Additional comments: Left BKA stump without erythema, edema, or wounds. No pain noted with palpation. Right foot with postoperative dressing is clean, dry, and intact. - Neurological Exam Neurological exam: Present: alert, oriented X3, strengths equal and symetr throughout - Psychiatric Psychiatric exam: Present: normal affect, normal mood - Skin Skin exam: Present: dry, intact, normal color, warm Infectious Disease CN: Results - Labs CBC & Chem 7: 08/09/16 07:00 08/09/16 06:01 Serology: Serology 08/08/16 Range/Units 14:00 Urine Color Yellow (Yellow) Urine Clarity Turbid A (Clear) Urine pH 7.5 (5.0-8.0) pH Units Ur Specific [place] 1.008 L (1.010-1.025) Urine Protein 30 H (Neg-Trace) mg/dL Urine Glucose (UA) Normal (Normal) mg/dL Urine Ketones Negative (Negative) mg/dL Urine Blood Moderate H (Negative) Urine Nitrite Negative (Negative) Urine Bilirubin Negative (Negative) Urine Urobilinogen Normal (Normal) mg/dL Ur Leukocyte Esterase Large H (Negative) Urine Microscopic RBC 5-15 H (0-3) per hpf Urine Microscopic WBC 50-100 H (0-3) per hpf Ur Squamous Epith Cells Few (None-Few) per lpf Urine Bacteria Many H (None-Few) per hpf Urine Mucus Many H (Few) Ur Culture Indicated? YES A (NO) Consult Discharge Plan - Plan Referrals: Leonardo Mayfield MD [Primary Care Provider] - 08/15/16 2:00 pm (Please follow up as schedule!!!)
[2016-08-09] MEDS ORDERED: Vancomycin 750 MG in D5% in Water 250 ML IVPB SCH (12:00)
[2016-08-09] MEDS ORDERED: Lidocaine -MPF 1% 5 ML AMPUL INFILT ONE (12:06)
[2016-08-09] MEDS ORDERED: Vancomycin 1,250 MG in D5% in Water 250 ML IVPB SCH (14:00)
[2016-08-09] MEDS ORDERED: Piperacillin/Tazobactam 3.375 GM in D5% in Water (Mini-Bag+) 100 ML IVPB SCH (16:00)
--- NOTE | 2016-08-09 16:12 | Podiatry Progress Note ---
Date of Encounter: 08/09/16 Time of Encounter: 12:15 - Assessment and Plan (1) Acute osteomyelitis of right calcaneus Current Visit: Yes Status: Acute dressing removed assessed at bedside Incision site intact and clear of signs of infection Incision line cleansed with saline, painted with betadine, adaptic, 4x4 and kerlex applied Patient tolerated well Patient will be non weight bearing at this time Await culture results prior to discharge for appropriate antibiotic coverage Continue current antibiotic therapy at this time Powerglide placement today- patient will likely need 6 weeks of outpatient antibiotic therapy Patient will follow up in clinic with in 1 week Please call with any issues to surgical site or fevers, chills, n/v or flu like symptoms Subjective Interval history: Patient post op day #1 of #1 incision and drainage to bone/cortex for osteomyelitis, #2 subtotal calcanectomy right calcaneus. Patient resting comfortably with dressing intact upon entering room. Powerglide team at bedside for power glide placement. Patient denies any issues or concerns at this time. Denies any pain. Patient denies any fevers, chills, n/v or flu like symptoms. Objective - Vital Signs Vital Signs: Vital Signs Temp Pulse Resp BP Pulse Ox 08/09/16 15:16 98.5 F 88 16 93/57 96 08/09/16 11:21 98.5 F 97 16 124/92 97 08/09/16 07:54 98.4 F 81 16 130/77 96 08/09/16 04:10 98.0 F 76 18 100/59 96 08/08/16 23:13 97.7 F 80 18 121/75 98 08/08/16 19:39 98.4 F 104 18 108/70 98 08/08/16 16:42 98.0 F 102 16 108/72 97 Intake and Output 08/09/16 08/09/16 08/09/16 07:59 15:59 23:59 Intake Total 980 / 980 Balance 980 / 980 Intake: Oral 980 / 980 Other: Meal Lunch Percent of Meal Consumed 100% Weight 54.068 kg Patient Weight 08/09/16 23:59 Weight 54.068 kg - Exam Exam: Podiatry General Exam: General appearance: alert awake oriented X 3. Calm and pleasant, no acute distress.. Vascular: Pedal pulses +2/4 DP/PTto right lower extremity , No evidence of cyanosis, pallor or rubor, Edema graded at 0+/4, Skin Temperature warm, No calf pain with manual compression. capillary refill time is immediate to digits. Neurologic: Sensation intact withmoderatetouch to foot. . Postop Exam: S/P #1 incision and drainage to bone/cortex for osteomyelitis. #2 subtotal calcanectomy right calcaneus Sutures and tere intact to incision line, no signs of dehiscence. No open area, no drainage, no odor, no erythema, no streaking. Minimal edema. no clinical signs of infection, appears to be healing without issue. - Lab Result Diagrams: 08/09/16 07:00 08/09/16 06:01 Labs: Abnormal lab results RBC 3.32 M/mcL (3.82-4.97) L 08/09/16 07:00 Hgb 9.3 g/dL (11.5-15.4) L D 08/09/16 07:00 Hct 30.0 % (35.3-44.9) L 08/09/16 07:00 MCHC 31.0 g/dL (31.6-35.5) L 08/09/16 07:00 Plt Count 427 K/mcL (140-400) H 08/09/16 07:00 MPV 8.9 fL (9.4-12.4) L 08/09/16 07:00 Platelet Estimate Increased (Normal) H 08/09/16 07:00 ESR 86 mm/hr (0-15) H 08/06/16 17:08 BUN/Creatinine Ratio 29 (6-26) H 08/09/16 06:01 Total Bilirubin 0.1 mg/dL (0.2-1.2) L 08/09/16 06:01 Alkaline Phosphatase 18 Units/L (38-126) L 08/09/16 06:01 C-Reactive Protein 27 mg/L (Less than 5) H 08/06/16 17:08 Albumin 2.3 g/dL (3.5-5.0) L 08/09/16 06:01 Globulin 4.2 g/dL (2.4-3.5) H 08/09/16 06:01 Albumin/Globulin Ratio 0.5 (1.1-2.2) L 08/09/16 06:01 Urine Clarity Turbid (Clear) A 08/08/16 14:00 Ur Specific [place] 1.008 (1.010-1.025) L 08/08/16 14:00 Urine Protein 30 mg/dL (Neg-Trace) H 08/08/16 14:00 Urine Blood Moderate (Negative) H 08/08/16 14:00 Ur Leukocyte Esterase Large (Negative) H 08/08/16 14:00 Urine Microscopic RBC 5-15 per hpf (0-3) H 08/08/16 14:00 Urine Microscopic WBC 50-100 per hpf (0-3) H 08/08/16 14:00 Urine Bacteria Many per hpf (None-Few) H 08/08/16 14:00 Urine Mucus Many (Few) H 08/08/16 14:00 Ur Culture Indicated? YES (NO) A 08/08/16 14:00 Consult Discharge Plan - Plan Referrals: Leonardo Mayfield MD [Primary Care Provider] - 08/15/16 2:00 pm (Please follow up as schedule!!!)
[2016-08-09] MEDS ORDERED: Ibuprofen 200 MG TABLET PO PRN (19:15)
[2016-08-09] MEDS ORDERED: Naloxone 0.4 MG/ML INJ IVP PRN (19:15)
[2016-08-09] MEDS: BuPROPion XL (24 HR) 150 MG TABLET PO SCH (21:12)
[2016-08-10] MEDS: Temazepam 15 MG CAPSULE PO SCH (00:25)
[2016-08-10] MEDS ORDERED: Vancomycin 1,000 MG VIAL IV SCH (03:00)
[2016-08-10 04:05] LABS: Basophils % 0.5 %; Eosinophils # 0.2 K/mcL (0.0-0.6); Eosinophils % 2.7 %; Hematocrit 29.1 % (35.3-44.9); Hemoglobin 9.2 g/dL (11.5-15.4); Immature Granulocytes % 0.9 % (0-4); Lymphocytes # 2.2 K/mcL (0.6-4.6); Lymphocytes % 34.1 %; Mean Corpuscular HGB Conc 31.6 g/dL (31.6-35.5); Mean Corpuscular Hemoglobin 28.3 pg (28.0-33.3); Mean Corpuscular Volume 89.5 fL (83.0-100.0); Mean Platelet Volume 8.9 fL (9.4-12.4); Monocytes # 0.6 K/mcL (0.0-1.3); Monocytes % 9.2 %; Neutrophils # 3.3 K/mcL (1.6-8.9); Platelet Count 369 K/mcL (140-400); Red Blood Count 3.25 M/mcL (3.82-4.97); Red Cell Distribution Width 13.2 % (11.5-14.5); Segmented Neutrophils % 52.6 %
[2016-08-10 04:23] LABS: BUN/Creatinine Ratio 32 (6-26); Blood Urea Nitrogen 24 mg/dL (7-20); Calcium 9.1 mg/dL (8.6-10.8); Carbon Dioxide 26 mEq/L (19-29); Chloride 105 mEq/L (98-109); Glucose 82 mg/dL (70-99); Osmolality,Calculated 287 (280-300); Potassium 4.6 mEq/L (3.5-4.5); Sodium 137 mEq/L (136-145); eGFR For African Americans > 60 (> 60); eGFR For Non-African Americans > 60 (> 60)
[2016-08-10] MEDS: hydroCHLOROthiazide 25 MG TABLET PO SCH (08:23)
[2016-08-10] MEDS: ALPRAZolam 1 MG TABLET PO PRN ×2 (08:24→16:19)
[2016-08-10] MEDS: *HR* OxyCODONE/APAP 7.5/325 TABLET PO PRN ×2 (08:24→18:33)
[2016-08-10] MEDS: Piperacillin/Tazobactam 3.375 GM in D5% in Water (Mini-Bag+) 100 ML IVPB SCH ×2 (08:24→16:19)
--- NOTE | 2016-08-10 12:42 | Podiatry Progress Note ---
Date of Encounter: 08/10/16 Time of Encounter: 12:39 - Assessment and Plan (1) Acute osteomyelitis of right calcaneus Current Visit: Yes Status: Acute Assessment: #1 osteomyelitis right calcaneus status post subtotal calcanectomy healing uneventfully suture line intact no evidence of dehiscence. Plan: #1 continue offloading and local wound care. #2 defer to infectious disease recommendations for intravenous antibiotics presently gram-negative rods percent of bacterium is corynebacterium. Previous cultures proximally 70 days ago reveal MSSA and Streptococcus. Continue same for now PICC line placed. Anticipate discharge in 48 hours Subjective Principal diagnosis: Osteomyelitis right calcaneus Interval history: #1 status post subtotal calcanectomy with bone culture reveals gram-positive rods present of corynebacterium. No fever no chills no nausea no vomiting no chest pain. Patient complaining of minimal pain Objective - Vital Signs Vital Signs: Vital Signs Temp Pulse Resp BP Pulse Ox 08/10/16 07:54 97.6 F 82 16 96/62 96 08/10/16 04:54 97.8 F 84 16 93/58 92 L 08/09/16 23:06 97.6 F 87 20 101/68 99 08/09/16 19:51 98.4 F 94 18 94/55 94 L 08/09/16 15:16 98.5 F 88 16 93/57 96 Intake and Output 08/09/16 08/10/16 08/10/16 23:59 07:59 15:59 Other: # Voids 1 Weight 57.1 kg Patient Weight 08/10/16 23:59 Weight 57.1 kg - Exam Incision: Present: healing, clean and dry Capillary Refill: less than 3 seconds - Lab Result Diagrams: 08/10/16 03:55 08/10/16 03:55 Labs: Abnormal lab results RBC 3.25 M/mcL (3.82-4.97) L 08/10/16 03:55 Hgb 9.2 g/dL (11.5-15.4) L 08/10/16 03:55 Hct 29.1 % (35.3-44.9) L 08/10/16 03:55 MPV 8.9 fL (9.4-12.4) L 08/10/16 03:55 Platelet Estimate Increased (Normal) H 08/09/16 07:00 ESR 86 mm/hr (0-15) H 08/06/16 17:08 Potassium 4.6 mEq/L (3.5-4.5) H 08/10/16 03:55 BUN 24 mg/dL (7-20) H 08/10/16 03:55 BUN/Creatinine Ratio 32 (6-26) H 08/10/16 03:55 Total Bilirubin 0.1 mg/dL (0.2-1.2) L 08/09/16 06:01 Alkaline Phosphatase 18 Units/L (38-126) L 08/09/16 06:01 C-Reactive Protein 27 mg/L (Less than 5) H 08/06/16 17:08 Albumin 2.3 g/dL (3.5-5.0) L 08/09/16 06:01 Globulin 4.2 g/dL (2.4-3.5) H 08/09/16 06:01 Albumin/Globulin Ratio 0.5 (1.1-2.2) L 08/09/16 06:01 Urine Clarity Turbid (Clear) A 08/08/16 14:00 Ur Specific [place] 1.008 (1.010-1.025) L 08/08/16 14:00 Urine Protein 30 mg/dL (Neg-Trace) H 08/08/16 14:00 Urine Blood Moderate (Negative) H 08/08/16 14:00 Ur Leukocyte Esterase Large (Negative) H 08/08/16 14:00 Urine Microscopic RBC 5-15 per hpf (0-3) H 08/08/16 14:00 Urine Microscopic WBC 50-100 per hpf (0-3) H 08/08/16 14:00 Urine Bacteria Many per hpf (None-Few) H 08/08/16 14:00 Urine Mucus Many (Few) H 08/08/16 14:00 Ur Culture Indicated? YES (NO) A 08/08/16 14:00 Microbiology, Last 48 Hours 08/08/16 09:01 Wound Culture - Final Right Foot Gram Positive Rods 08/08/16 09:01 Wound Culture - Preliminary Right Foot Gram Positive Rods 08/08/16 14:00 Urine Culture - Final Urine,Clean Catch No pathogens isolated. Consult Discharge Plan - Plan Referrals: Leonardo Mayfield MD [Primary Care Provider] - 08/15/16 2:00 pm (Please follow up as schedule!!!)
[2016-08-10] MEDS ORDERED: Vancomycin 1,250 MG in D5% in Water 250 ML IVPB SCH (14:00)
--- NOTE | 2016-08-10 15:54 | Internal Med Progress Note ---
Date of Encounter: 08/10/16 Time of Encounter: 10:30 - Assessment and plan (1) Hypertension Current Visit: Yes Status: Chronic Assessment and plan: Patient has history of hypertension, patient status post debridement of right calcaneus and presents with stable blood pressure. Plan: -Continue BP management with HCTZ and Cozaar, with stable blood pressures. No change in plan at this time. Qualifiers: Hypertension type: essential hypertension Qualified Code(s): I10 - Essential (primary) hypertension (2) COPD (chronic obstructive pulmonary disease) Current Visit: Yes Status: Chronic Assessment and plan: Patient history COPD, maintaining oxygen saturations greater than 90% on room air, does not appear to have any shortness of breath. Plan to continue home therapy. - No change from yesterday. Plan: - Albuterol when necessary, DuoNeb's every 6 hours when necessary - Mucinex 600 mg twice a day - Incentive spirometry prior to procedure. Continue current management as above. Qualifiers: COPD type: unspecified COPD Qualified Code(s): J44.9 - Chronic obstructive pulmonary disease, unspecified (3) Smoker Current Visit: Yes Status: Acute Assessment and plan: Chantix per patient. (4) Anxiety Current Visit: Yes Status: Chronic (5) Acute osteomyelitis of right calcaneus Current Visit: Yes Status: Acute Assessment and plan: Patient status post debridement of right calcaneus 08/08/2016. Antibiotics per ID. - Subjective Interval history: Ms. Jha is currently admitted for osteomyelitis of her foot. She is moderate risk due to potential for worsening infectious status. Ms. Jha feels OK. No new issues overnight. Pain is controlled at this time. - Constitutional Vitals: Temp Pulse Resp BP Pulse Ox 97.6 F 82 16 96/62 96 08/10/16 07:54 08/10/16 07:54 08/10/16 07:54 08/10/16 07:54 08/10/16 07:54 General appearance: Present: A&O X 3, pleasant, no acute distress - Head Head exam: Present: normocephalic - Eye Eye exam: Present: conjuntiva pink - ENT ENT exam: Present: mucous membranes dry - Respiratory Respiratory exam: Present: decreased breath sounds, CTAB - Cardiovascular Cardiovascular exam: Present: RRR. Absent: tachycardia - GI/Abdominal GI/Abdominal exam: Present: soft. Absent: tenderness - Extremities Exam Extremities exam: Present: warm - Neurological Exam Neurological exam: Present: alert, oriented X3 - Skin Skin exam: Present: warm. Absent: rash Internal Medicine: Result - Labs CBC & Chem 7: 08/10/16 03:55 08/10/16 03:55 Labs: Short CBC 08/10/16 Range/Units 03:55 WBC 6.3 (4.3-11.1) K/mcL Hgb 9.2 L (11.5-15.4) g/dL Hct 29.1 L (35.3-44.9) % Plt Count 369 (140-400) K/mcL Neutrophils # 3.3 (1.6-8.9) K/mcL BMP 08/10/16 03:55 Sodium 137 Potassium 4.6 H Chloride 105 Carbon Dioxide 26 BUN 24 H Creatinine 0.75 Glucose 82 Calcium 9.1 Consult Discharge Plan - Plan Referrals: Leonardo Myafield MD [Primary Care Provider] - 08/15/16 2:00 pm (Please follow up as schedule!!!)
[2016-08-10] MEDS: BuPROPion XL (24 HR) 150 MG TABLET PO SCH (20:23)
[2016-08-11] MEDS: Piperacillin/Tazobactam 3.375 GM in D5% in Water (Mini-Bag+) 100 ML IVPB SCH ×4 (00:13→23:54)
[2016-08-11] MEDS: Temazepam 15 MG CAPSULE PO SCH ×2 (00:14→22:13)
[2016-08-11] MEDS: ALPRAZolam 1 MG TABLET PO PRN ×2 (08:58→22:13)
[2016-08-11] MEDS: *HR* OxyCODONE/APAP 7.5/325 TABLET PO PRN ×3 (08:58→22:12)
[2016-08-11] MEDS: hydroCHLOROthiazide 25 MG TABLET PO SCH (09:00)
[2016-08-11] MEDS: Vancomycin 1,000 MG in D5% in Water 250 ML IVPB SCH (15:12)
--- NOTE | 2016-08-11 16:23 | Internal Med Progress Note ---
Date of Encounter: 08/11/16 Time of Encounter: 10:30 - Assessment and plan (1) Hypertension Current Visit: Yes Status: Chronic Assessment and plan: Patient has history of hypertension, patient status post debridement of right calcaneus and presents with stable blood pressure. Plan: -Continue BP management with HCTZ and Cozaar, with stable blood pressures. No change in plan at this time. Continue home BP meds as above. Qualifiers: Hypertension type: essential hypertension Qualified Code(s): I10 - Essential (primary) hypertension (2) COPD (chronic obstructive pulmonary disease) Current Visit: Yes Status: Chronic Assessment and plan: Patient history COPD, maintaining oxygen saturations greater than 90% on room air, does not appear to have any shortness of breath. Plan to continue home therapy. - No change from yesterday. Plan: - Albuterol when necessary, DuoNeb's every 6 hours when necessary - Mucinex 600 mg twice a day - Incentive spirometry prior to procedure. Continue current management as above. Qualifiers: COPD type: unspecified COPD Qualified Code(s): J44.9 - Chronic obstructive pulmonary disease, unspecified (3) Smoker Current Visit: Yes Status: Acute Assessment and plan: Chantix per patient. (4) Anxiety Current Visit: Yes Status: Chronic (5) Acute osteomyelitis of right calcaneus Current Visit: Yes Status: Acute Assessment and plan: Patient status post debridement of right calcaneus 08/08/2016. Antibiotics per ID. - Subjective Interval history: Ms. Jha is currently admitted for osteomyelitis of her foot. She is moderate risk due to potential for worsening infectious status. Ms. Jha has a lot of questions related to discharge, etc. Dr. Freire addressing. No acute medical issues overnight. BP stable. - Constitutional Vitals: Temp Pulse Resp BP Pulse Ox 97.8 F 89 19 96/60 92 L 08/11/16 04:34 08/11/16 04:34 08/11/16 04:34 08/11/16 04:34 08/11/16 04:34 General appearance: Present: A&O X 3, pleasant, no acute distress - Head Head exam: Present: normocephalic - Eye Eye exam: Present: EOMI, conjuntiva pink - ENT ENT exam: Present: mucous membranes dry - Respiratory Respiratory exam: Present: decreased breath sounds. Absent: wheezes - Cardiovascular Cardiovascular exam: Present: RRR. Absent: tachycardia - GI/Abdominal GI/Abdominal exam: Present: soft. Absent: tenderness - Neurological Exam Neurological exam: Present: alert, oriented X3 - Skin Skin exam: Present: dry, warm. Absent: rash Internal Medicine: Result - Labs CBC & Chem 7: 08/10/16 03:55 08/10/16 03:55 - Impressions Impressions Foot X-Ray 08/11/16 09:15 IMPRESSION: Patient is again noted to be status post partial ostectomy of the posterior process of the calcaneus along with likely re-implantation of the Achilles tendon as above. No acute bony abnormalities are seen. Soft tissue swelling to the posterior heel may be on the basis of recent surgical intervention. No radiopaque foreign bodies or soft tissue gas. No new acute bony abnormalities. D/ / 08/11/2016 09:53:26 Keyur Phillips MD / [facility] Interpreting Provider: Keyur Phillips MD Consult Discharge Plan - Plan Referrals: Leonardo Mayfield MD [Primary Care Provider] - 08/15/16 2:00 pm (Please follow up as schedule!!!)
[2016-08-11] MEDS: BuPROPion XL (24 HR) 150 MG TABLET PO SCH (22:13)
[2016-08-12] MEDS: Vancomycin 1,000 MG in D5% in Water 250 ML IVPB SCH ×2 (03:39→14:29)
[2016-08-12] MEDS: Piperacillin/Tazobactam 3.375 GM in D5% in Water (Mini-Bag+) 100 ML IVPB SCH (08:41)
[2016-08-12] MEDS: hydroCHLOROthiazide 25 MG TABLET PO SCH (08:42)
[2016-08-12] MEDS: *HR* OxyCODONE/APAP 7.5/325 TABLET PO PRN ×2 (08:44→14:28)
[2016-08-12] MEDS: ALPRAZolam 1 MG TABLET PO PRN ×2 (08:44→14:28)
--- NOTE | 2016-08-12 10:27 | Infectious Disease Progress No ---
Date of Encounter: 08/12/16 Time of Encounter: 10:25 - Assessment and Plan (1) Acute osteomyelitis of right calcaneus Current Visit: Yes Status: Acute Location: Right heel. Likely secondary to pressure injury with infection. Causative organism unclear. Intra-operative cultures show GPR, likely Corynebacterium. ESR 86, CRP 27. Status post I & D to the bone/cortex for OM and right calcanectomy 08/08/[address] Freire. Operative report reviewed. The patient has had no SIRS criteria. Continue Vancomycin IV. Pharmacy to dose. Goal trough approximately 15. Discontinue Zosyn. Duration of treatment depends on the clinical picture, but likely 6 weeks of IV antibiotics will be required. Monitor renal function and for drug toxicity and dose-adjust antibiotics. PICC line placed 08/09/16. dining services director consulted for discharge planning. Wound care as outlined by the Podiatry team. Weekly CBC, BMP, ESR, CRP, and Vanc trough. Weekly PICC care per protocol. Follow up with ID 08/28/16 at 1400. (2) Injury of right heel Current Visit: No Status: Acute Secondary to pressure ulcer. Continue wound care as outlined by the podiatry team. Qualifiers: Encounter type: initial encounter Qualified Code(s): S99.921A - Unspecified injury of right foot, initial encounter (3) Pressure ulcer of left buttock, stage 3 Current Visit: No Status: Acute Does not appear infected. Continue local wound care and offloading as outlined per the wound care team. (4) Hypertension Current Visit: Yes Status: Chronic Qualifiers: Hypertension type: essential hypertension Qualified Code(s): I10 - Essential (primary) hypertension (5) COPD (chronic obstructive pulmonary disease) Current Visit: Yes Status: Chronic Qualifiers: COPD type: unspecified COPD Qualified Code(s): J44.9 - Chronic obstructive pulmonary disease, unspecified (6) Depression Current Visit: Yes Status: Chronic Qualifiers: Depression Type: major depressive disorder Major depression recurrence: recurrent Active/Remission status: remission status unspecified Qualified Code(s): F33.9 - Major depressive disorder, recurrent, unspecified (7) Anxiety Current Visit: Yes Status: Chronic - Subjective Interval history: Patient seen and examined. Weekend noted reviewed. No acute events noted overnight. Patient sitting up in bed, requesting to go home. Denies fevers or chills. Denies chest pain, shortness of breath, or cough. Denies nausea, vomiting, or diarrhea. Complains of chronic back pain, but otherwise denies pain. Denies oral thrush or skin lesions. Continues to self-cath intermittently through the day. Infect Dis PN-Objective Data - Labs CBC & Chem 7: 08/10/16 03:55 08/10/16 03:55 Labs: Laboratory Results - last 24 hr 08/11/16 12:56 Vancomycin Trough 4.8 L Cultures: Cultures 08/08/16 09:01 Anaerobic Culture - Preliminary Right Foot At this time, no anaerobic growth is present. The culture will be finalized after 5 days of incubation. 08/08/16 09:01 Anaerobic Culture - Preliminary Right Foot At this time, no anaerobic growth is present. The culture will be finalized after 5 days of incubation. 08/08/16 09:01 Wound Culture - Final Right Foot Gram Positive Rods 08/08/16 09:01 Wound Culture - Final Right Foot Gram Positive Rods 08/08/16 14:00 Urine Culture - Final Urine,Clean Catch No pathogens isolated. Serology 08/08/16 Range/Units 14:00 Urine Color Yellow (Yellow) Urine Clarity Turbid A (Clear) Urine pH 7.5 (5.0-8.0) pH Units Ur Specific [place] 1.008 L (1.010-1.025) Urine Protein 30 H (Neg-Trace) mg/dL Urine Glucose (UA) Normal (Normal) mg/dL Urine Ketones Negative (Negative) mg/dL Urine Blood Moderate H (Negative) Urine Nitrite Negative (Negative) Urine Bilirubin Negative (Negative) Urine Urobilinogen Normal (Normal) mg/dL Ur Leukocyte Esterase Large H (Negative) Urine Microscopic RBC 5-15 H (0-3) per hpf Urine Microscopic WBC 50-100 H (0-3) per hpf Ur Squamous Epith Cells Few (None-Few) per lpf Urine Bacteria Many H (None-Few) per hpf Urine Mucus Many H (Few) Ur Culture Indicated? YES A (NO) Exam - Constitutional Vitals: Temp Pulse Resp BP Pulse Ox 98.0 F 84 17 103/60 98 08/12/16 07:44 08/12/16 07:44 08/12/16 07:44 08/12/16 07:44 08/12/16 07:44 General appearance: average body habitus, cooperative, no acute distress - Head Head exam: Present: atraumatic, normal inspection, normocephalic - Eye Eye exam: Present: EOMI, normal appearance Pupils: Present: normal accommodation, PERRL - ENT ENT exam: Present: mucous membranes moist - Neck Neck exam: Present: normal inspection - Respiratory Respiratory exam: Present: CTAB. Absent: rales, respiratory distress, rhonchi, wheezes - Cardiovascular Cardiovascular exam: Present: RRR, +S1, +S2 - GI/Abdominal GI/Abdominal exam: Present: normal bowel sounds, soft. 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 Right foot dressing with small amount of old bloody drainage noted on the heel. - Neurological Exam Neurological exam: Present: alert, oriented X3, strengths equal and symetr throughout - Psychiatric Psychiatric exam: Present: normal affect, normal mood - Skin Skin exam: Present: dry, intact, normal color, warm - Additional findings Additional findings: PICC line noted to the RUE with transparent dressing C/D/I. Consult Discharge Plan - Plan Referrals: Leonardo Mayfield MD [Primary Care Provider] - 08/15/16 2:00 pm (Please follow up as schedule!!!) Lilli Paiz PRODUCTION MAINTENANCE TECHNICIAN [Advanced Practice Nurse] - 08/28/16 2:00 pm
--- NOTE | 2016-08-12 12:31 | Discharge Summary ---
Date of Encounter: 08/06/16 Time of Encounter: 12:15 - Discharge Diagnosis (1) Acute osteomyelitis of right calcaneus Priority: Primary Status: Acute (2) Hypertension Priority: Secondary Status: Chronic Qualifiers: Hypertension type: essential hypertension Qualified Code(s): I10 - Essential (primary) hypertension (3) COPD (chronic obstructive pulmonary disease) Priority: Secondary Status: Chronic Qualifiers: COPD type: unspecified COPD Qualified Code(s): J44.9 - Chronic obstructive pulmonary disease, unspecified (4) Pressure ulcer of left buttock, stage 3 Priority: Secondary Status: Acute - Discharge Medications Prescriptions: Oxycodone HCl/Acetaminophen [Percocet 5-325 mg Tablet] 1 each PO QID PRN #16 tablet PRN Reason: pain Vancomycin [Vancocin] 1 each IV AD #14 vial Vancomycin [Vancocin] 1 each IV DAILY #21 vial Home Medications: Albuterol Sulfate [Proair Hfa] 1 - 2 puff IH Q6H PRN 01/17/16 [History] Alprazolam [Xanax 1 MG Tablet] 1 mg PO BID PRN 01/17/16 [History] Citalopram Hydrobromide [Celexa] 40 mg PO DAILY 01/17/16 [History] Cyclobenzaprine [Flexeril] 10 mg PO TID 01/17/16 [History] Ibuprofen [Advil] 200 mg PO TID PRN 01/17/16 [History] Oxybutynin Chloride [Ditropan Xl] 10 mg PO DAILY PRN 01/17/16 [History] Oxycodone HCl/Acetaminophen [Percocet 7.5-325 mg Tablet] 1 tab PO TID PRN [History] Temazepam [Restoril] 30 mg PO HS 01/17/16 [History] Varenicline Tartrate [Chantix] 1 mg PO BID 01/17/16 [History] BuPROPion XL (24 HR) [Wellbutrin Xl] 150 mg PO DAILY 08/06/16 [History] Losartan/Hydrochlorothiazide [Hyzaar 100-12.5 Tablet] 1 each PO DAILY 08/06/16 [ History] Oxycodone HCl/Acetaminophen [Percocet 5-325 mg Tablet] 1 each PO QID PRN #16 tablet 08/12/16 [Rx] Vancomycin [Vancocin] 1 each IV AD #14 vial 08/12/16 [Rx] Vancomycin [Vancocin] 1 each IV DAILY #21 vial 08/12/16 [Rx] Allergies/Adverse Reactions: Allergies morphine Allergy (Verified 04/19/15 08:57) Hives Labs on day of discharge: Labs from last 24 hours 08/11/16 12:56 Vancomycin Trough 4.8 L Preliminary micro results at discharge 08/08/16 09:01 Anaerobic Culture - Preliminary Right Foot At this time, no anaerobic growth is present. The culture will be finalized after 5 days of incubation. 08/08/16 09:01 Anaerobic Culture - Preliminary Right Foot At this time, no anaerobic growth is present. The culture will be finalized after 5 days of incubation. - Impressions ITS Impressions Foot X-Ray 08/08/16 08:56 IMPRESSION: Interval partial osteotomy of the posterior calcaneus with postoperative changes, as detailed above. D/ / Zenon Haskins MD / Zenon Haskins MD Interpreting Provider: Zenon Haskins MD Foot X-Ray 08/11/16 09:15 IMPRESSION: Patient is again noted to be status post partial ostectomy of the posterior process of the calcaneus along with likely re-implantation of the Achilles tendon as above. No acute bony abnormalities are seen. Soft tissue swelling to the posterior heel may be on the basis of recent surgical intervention. No radiopaque foreign bodies or soft tissue gas. No new acute bony abnormalities. D/ / 08/11/2016 09:53:26 Keyur Phillips MD / [facility] Interpreting Provider: Keyur Phillips MD Date of admission: 08/06/16 13:50 Primary care physician: Leonardo Mayfield MD Consults: 08/06/16 16:51 Consult to Hospitalist [CONS] Routine Consulting Provider: Hospitalist [place] Reason for Consult: Manage comorbidities. Call Completed: Yes 08/06/16 17:13 Consult to Wound Care [CONS] Routine Reason for Consult: Decubitus ulcer left buttock. Call Completed: No 08/10/16 02:55 Consult to Infectious Diseases [CONS] Routine Consulting Provider: Alexander Funk Reason for Consult: osteomyelitis right foot Call Completed: No Consult to Meeting Facilitator [CONS] Routine Reason for SW Consult: HH for IV antibiotics Discharging clinician: Rodrigo Chan Anticipated date of discharge: 08/12/16 - Patient Status Disposition: Home, Self-Care Condition: Fair Functional capacity at discharge: uses cane/walker Overall status at discharge: patient is progressing back to baseline - Ambulatory Orders Ambulatory Orders: Basic Metabolic Panel [CHEM] Time Frame: 1 Week, Location: N/A C-Reactive Protein [CHEM] Time Frame: 1 Week, Location: N/A Complete Blood Count [HEME] Time Frame: 1 Week, Location: N/A Erythrocyte Sedimentation Rate [HEME] Time Frame: 1 Week, Location: N/A Vancomycin,Trough [CHEM] Time Frame: 1 Week, Location: N/A - Discharge Instructions Instructions: Vancomycin (Injection), Osteomyelitis (DC) Follow Up With: Leonardo Mayfield MD [Primary Care Provider] - 08/15/16 2:00 pm (Please follow up as schedule!!!) Lilli Paiz CNP [Advanced Practice Nurse] - 08/28/16 2:00 pm Ancelmo Freire DPM [Partnered Physician] - 08/23/16 11:00 am (f/u with in one week from discharge from hospital.) Additional Instructions: 1. Daily dressing changes by home health care. Cleanse incision site daily with mild soap and water, pat dry, apply betadine, dry sterile 4x4 gauze and kerlix. 2. Non weight bearing to right heel. Use short cam boot with walker.3 3. Weekly labs to consist of an ESR, CRP, WBC, BMP, and vancomycin trough level. 4. Will most likely receive 6 weeks of IV vancomycin. 5. Patient will follow up with Dr. Freire in wound care within 1 week of discharge in the hospital. Patient will follow up with infectious disease and primary care provider as already scheduled. - Diet and Activity Activity: ambulate only with your walker (No weight to right heel. ) Diet: advance to your usual diet - Hospital Course Hospital course: Ms. Jha is a 56 year old female admitted to [facility] on 08/06/2016 for acute osteomyelitis of the right heel. Patient has a medical history significant for hypertension, COPD, spina bifida, anxiety, and depression. ESR was 86 and CRP 27 upon admission. White blood cell count remained normal. No sepsis criteria. Hospitalist was consulted for management of comorbidities. Wound care was consulted for a stage III decubitus ulcer to the left buttocks. Patient underwent an I&D bone/cortex for osteomyelitis and right calcanectomy by Dr. Freire on 08/08/2016. Infectious disease was consulted for management of antibiotic therapy. After surgery patient was started on Vancomycin and Zosyn. Intraoperative cultures isolated GPR, likely Corynebacterium. A PICC line was placed prior to discharge. Condition improved upon discharge. Patient will be discharged with most likely 6 weeks of IV Vancomycin. Patient will require home health care for IV antibiotic therapy, weekly labs, and daily dressing changes. Patient was placed in a cam boot and instructed to minimize weight to the right heel. - Time Spent with Patient Total time spent providing and/or coordinating discharge services:
--- NOTE | 2016-08-12 14:37 | Internal Med Progress Note ---
<HubertashleyTucker bull - Last Filed: 08/12/16 14:35> Date of Encounter: 08/12/16 Time of Encounter: 14:35 - Assessment and plan (1) Acute osteomyelitis of right calcaneus Current Visit: Yes Status: Acute Assessment and plan: Patient status post debridement of right calcaneus 08/08/2016. Antibiotics per ID. Currently on Vancomycin and Zosyn. Culture demonstrates Gram - rods, final read and sensitivity pending. (2) Depression Current Visit: Yes Status: Chronic Assessment and plan: Continue Wellbutrin 150 mg by mouth QPM Celexa 40 mg by mouth daily Continue home dose Xanax 1 mg by mouth twice a day when necessary for anxiety (3) COPD (chronic obstructive pulmonary disease) Current Visit: Yes Status: Chronic Assessment and plan: Patient history COPD, maintaining oxygen saturations greater than 90% on room air, does not appear to have any shortness of breath. Plan to continue home therapy. - No change from yesterday. Plan: - Albuterol when necessary, DuoNeb's every 6 hours when necessary - Mucinex 600 mg twice a day - Incentive spirometry prior to procedure. Continue current management as above. (4) Hypertension Current Visit: Yes Status: Chronic Assessment and plan: Patient has history of hypertension, patient status post debridement of right calcaneus and presents with stable blood pressure. Plan: - Continue BP management with HCTZ and Cozaar, with stable blood pressures. - No change in plan at this time. Continue home BP meds as above. - Subjective Interval history: Ms. Jha has been seen and evaluated at patient bedside this am. She is doing well without pain. She says that she is looking forward to discharging home. She denies any pain, discomfort or anyother concerning signs or symptoms. She has an appointment scheduled with her PCP per patient. - Constitutional Vitals: Temp Pulse Resp BP Pulse Ox 98.1 F 88 18 110/64 98 08/12/16 11:47 08/12/16 11:47 08/12/16 11:47 08/12/16 11:47 08/12/16 11:47 General appearance: Present: A&O X 3, pleasant, no acute distress - Head Head exam: Present: atraumatic, normocephalic - Eye Eye exam: Present: PERRL, conjuntiva pink, sclera anicteric Pupils: Present: PERRL - ENT ENT exam: Present: mucous membranes moist - Neck Neck exam general surgery: Present: supple, trachea midline. Absent: lymphadenopathy - Respiratory Respiratory exam: Present: CTAB. Absent: accessory muscle use, rales, rhonchi, wheezes - Cardiovascular Cardiovascular exam: Present: RRR, +S1, +S2. Absent: diastolic murmur, gallop, rubs, systolic murmur - GI/Abdominal GI/Abdominal exam: Present: normal bowel sounds, soft, no peritoneal signs. Absent: distended, tenderness - Extremities Exam Additional comments: Left BKA, right foot wrapped and with small amount of blood on dressings. toes are warm and with good capillary filling. - Neurological Exam Neurological exam: Present: alert, oriented X3, no focal deficits. Absent: pronater drift, facial droop, speech deficit - Psychiatric Psychiatric exam: Present: normal affect, normal mood - Skin Skin exam: Present: dry, intact Internal Medicine: Result - Labs CBC & Chem 7: 08/10/16 03:55 08/10/16 03:55 Consult Discharge Plan - Plan Additional Instructions: 1. Daily dressing changes by home health care. Cleanse incision site daily with mild soap and water, pat dry, apply betadine, dry sterile 4x4 gauze and kerlix. 2. Non weight bearing to right heel. Referrals: Leonardo Mayfield MD [Primary Care Provider] - 08/15/16 2:00 pm (Please follow up as schedule!!!) Lilli Paiz CNP [Advanced Practice Nurse] - 08/28/16 2:00 pm Ancelmo Freire DPM [Partnered Physician] - 08/23/16 11:00 am (f/u with in one week from discharge from hospital.) Prescriptions: Oxycodone HCl/Acetaminophen [Percocet 5-325 mg Tablet] 1 each PO QID PRN #16 tablet PRN Reason: pain Vancomycin [Vancocin] 1 each IV AD #14 vial Vancomycin [Vancocin] 1 each IV DAILY #21 vial <Jerman Acuna - Last Filed: 08/12/16 15:07> - Assessment and plan (1) Hypertension Current Visit: Yes Status: Chronic Qualifiers: Hypertension type: essential hypertension Qualified Code(s): I10 - Essential (primary) hypertension (2) COPD (chronic obstructive pulmonary disease) Current Visit: Yes Status: Chronic Qualifiers: COPD type: unspecified COPD Qualified Code(s): J44.9 - Chronic obstructive pulmonary disease, unspecified (3) Smoker Current Visit: Yes Status: Acute (4) Anxiety Current Visit: Yes Status: Chronic (5) Acute osteomyelitis of right calcaneus Current Visit: Yes Status: Acute (6) Anemia, posthemorrhagic, acute Current Visit: Yes Status: Acute - Constitutional Vitals: Temp Pulse Resp BP Pulse Ox 98.1 F 88 18 110/64 98 08/12/16 11:47 08/12/16 11:47 08/12/16 11:47 08/12/16 11:47 08/12/16 11:47 Internal Medicine: Result - Labs CBC & Chem 7: 08/10/16 03:55 08/10/16 03:55 - Attending Attestation I examined this patient and my medical decision-making was reviewed with the Resident Physician on 08/12/16. I agree with the documented findings, disposition and treatment plan as described except to the extent set forth below. Ms. Jha is being seen in consult for medical issues. Ms Jha feels OK. No new issues overnight. BP controlled Exam Alert. Comfortable Heart reg No wheeze Plan D/C today per podiatry No changes in chronic medical issues/medicines.
[2016-08-12 15:29] VITALS: BP 101/63
--- NOTE | 2016-08-12 16:02 | Physician Discharge Referral ---
Home Health/Hosp Referral Info Attending Provider: Tani Provider in Charge Post Discharge: PCP David) - Diagnosis (1) Acute osteomyelitis of right calcaneus Status: Acute - Respiratory Orders Smoking Cessation: Smoking cessation has been advised. For more information, call the [place] [employer] Quit Line at 1-543-PTLM-NOW. - Dressing/Wound Care Site: Right, foot/ heel/calcaneus Type of Dressing/Treatments w/Frequency: #1 cleanse with soap and water pat dry and apply Adaptic 4 x 4's Kerlix, daily - Diet/Nutrition Diet/Nutrition Orders: Regular Diet/Nutrition: List: High-protein diet - Activity Activity Orders: Walker - Services Needed Following services are medically necessary services: Long-Term Care Orders: #1 cleanse right foot heel ankle wound/incision with soap and water and apply Adaptic 4 x 4's Kerlix daily - Transfer Medications Prescriptions: Oxycodone HCl/Acetaminophen [Percocet 5-325 mg Tablet] 1 each PO QID PRN #16 tablet PRN Reason: pain Vancomycin [Vancocin] 1 each IV AD #14 vial Vancomycin [Vancocin] 1 each IV DAILY #21 vial Home Medications: Albuterol Sulfate [Proair Hfa] 1 - 2 puff IH Q6H PRN 01/17/16 [History] Alprazolam [Xanax 1 MG Tablet] 1 mg PO BID PRN 01/17/16 [History] Citalopram Hydrobromide [Celexa] 40 mg PO DAILY 01/17/16 [History] Cyclobenzaprine [Flexeril] 10 mg PO TID 01/17/16 [History] Ibuprofen [Advil] 200 mg PO TID PRN 01/17/16 [History] Oxybutynin Chloride [Ditropan Xl] 10 mg PO DAILY PRN 01/17/16 [History] Oxycodone HCl/Acetaminophen [Percocet 7.5-325 mg Tablet] 1 tab PO TID PRN [History] Temazepam [Restoril] 30 mg PO HS 01/17/16 [History] Varenicline Tartrate [Chantix] 1 mg PO BID 01/17/16 [History] BuPROPion XL (24 HR) [Wellbutrin Xl] 150 mg PO DAILY 08/06/16 [History] Losartan/Hydrochlorothiazide [Hyzaar 100-12.5 Tablet] 1 each PO DAILY 08/06/16 [ History] Oxycodone HCl/Acetaminophen [Percocet 5-325 mg Tablet] 1 each PO QID PRN #16 tablet 08/12/16 [Rx] Vancomycin [Vancocin] 1 each IV AD #14 vial 08/12/16 [Rx] Vancomycin [Vancocin] 1 each IV DAILY #21 vial 08/12/16 [Rx] Allergies/Adverse Reactions: Allergies morphine Allergy (Verified 04/19/15 08:57) Hives Certification: Further, I certify that my clinical findings support that this patient is homebound (i.e. absences from home require considerable and taxing effort and are for medical reasons or latter day services or infrequently or short duration when for other reasons) because: Homebound Reason: Patient requires assistance of a person or device to safely leave home Attestation: My signature below is to certify that this patient is under my care and that I, or nurse practitioner, or a physician's hotel assistant manager working with me, has a face-to -face encounter with this patient.
[2016-08-12] MEDS ORDERED: Aminoglycoside Consult 1 EACH MC ONE (17:10)
== END 2016-08-12 17:11 | disposition home or self-care (01) | DRG 503 ==
LOC: 2ANU 13:50
PROVIDERS: ADMIT Podiatrist Foot Surgery; ATTEND Podiatrist Foot Surgery

== ENCOUNTER 2019-09-16 16:55 | Inpatient (IN) ==
[2019-09-16 17:52] LABS: Hematocrit 26.6 % (35.3-44.9); Hemoglobin 8.7 g/dL (11.5-15.4); Mean Corpuscular HGB Conc 32.7 g/dL (31.6-35.5); Mean Corpuscular Hemoglobin 26.3 pg (28.0-33.3); Mean Corpuscular Volume 80.4 fL (83.0-100.0); Mean Platelet Volume 9.8 fL (9.4-12.4); Platelet Count 212 K/mcL (140-400); Red Blood Count 3.31 M/mcL (3.82-4.97); Red Cell Distribution Width 14.6 % (11.5-14.5); White Blood Count 9.6 K/mcL (4.3-11.1)
[2019-09-16 18:14] LABS: Alanine Aminotransferase 23 Units/L (7-52); Albumin 2.4 g/dL (3.5-5.7); Albumin/Globulin Ratio 0.8 (1.1-2.2); Alkaline Phosphatase 32 Units/L (34-104); Aspartate Amino Transferase 32 Units/L (13-39); BUN/Creatinine Ratio 47 (6-26); Bilirubin,Total 1.1 mg/dL (0.3-1.0); Blood Urea Nitrogen 27 mg/dL (6-20); Calcium 7.9 mg/dL (8.6-10.3); Carbon Dioxide 22 mEq/L (23-29); Chloride 103 mEq/L (98-107); Globulin 3.1 g/dL (2.4-3.5); Glucose 61 mg/dL (70-105); Osmolality,Calculated 285 (280-300); Potassium 2.8 mEq/L (3.5-5.1); Sodium 136 mEq/L (136-145); Total Protein 5.5 g/dL (6.4-8.9); Troponin I < 0.03 ng/mL (< 0.04); eGFR For African Americans > 60 (> 60); eGFR For Non-African Americans > 60 (> 60)
[2019-09-16] MEDS ORDERED: *HR* FentaNYL (PF) 100 MCG/2 ML VIAL IVP ONE (18:53)
[2019-09-16] MEDS ORDERED: Potassium Chloride Elixir 20 MEQ/15 ML UDC PO ONE ×2 (19:34→19:57)
[2019-09-16] MEDS ORDERED: Piperacillin/Tazobactam 3.375 GM in Water for inj. (sterile) 20 ML IVP ONE (19:51)
[2019-09-17] MEDS ORDERED: Naloxone 0.4 MG/ML INJ IVP PRN (01:05)
[2019-09-17] MEDS ORDERED: Nicotine 2 MG GUM BC PRN (01:05)
[2019-09-17] MEDS ORDERED: Acetaminophen IV 500 MG/50 ML INFUS..BTL IVPB ONE (01:30)
[2019-09-17] MEDS: Pantoprazole 40 MG VIAL IVP SCH ×2 (01:41→17:26)
[2019-09-17 01:44] LABS: Hematocrit 26.5 % (35.3-44.9); Hemoglobin 8.5 g/dL (11.5-15.4)
[2019-09-17 01:45] LABS: Basophils # 0.1 K/mcL (0.0-0.2); Basophils % 0.7 %; Eosinophils % 0.2 %; Hematocrit 25.6 % (35.3-44.9); Hemoglobin 8.4 g/dL (11.5-15.4); Immature Granulocytes % 0.2 % (0-4); Immature Reticulocyte % 32.9 % (11.0-38.0); Lymphocytes # 0.5 K/mcL (0.6-4.6); Lymphocytes % 5.5 %; Mean Corpuscular HGB Conc 32.8 g/dL (31.6-35.5); Mean Corpuscular Hemoglobin 26.3 pg (28.0-33.3); Mean Corpuscular Volume 80.3 fL (83.0-100.0); Mean Platelet Volume 10.2 fL (9.4-12.4); Monocytes # 0.4 K/mcL (0.0-1.3); Monocytes % 4.4 %; Neutrophils # 7.4 K/mcL (1.6-8.9); Platelet Count 187 K/mcL (140-400); Red Blood Count 3.19 M/mcL (3.82-4.97); Red Cell Distribution Width 14.6 % (11.5-14.5); Retculocyte # 0.02 M/mcL (0.05-0.10); Reticulocyte % 0.7 % (1.6-2.8); White Blood Count 8.3 K/mcL (4.3-11.1)
[2019-09-17 01:52] LABS: INR 1.6; Prothrombin Time 18.6 Seconds (9.4-12.1)
[2019-09-17 02:05] LABS: Hypochromasia Present (Not Present)
[2019-09-17 02:06] LABS: Platelet Estimate Normal (Normal)
[2019-09-17 02:59] LABS: BUN/Creatinine Ratio 47 (6-26); Blood Urea Nitrogen 26 mg/dL (6-20); Calcium 7.7 mg/dL (8.6-10.3); Carbon Dioxide 20 mEq/L (23-29); Chloride 106 mEq/L (98-107); Ferritin 193 ng/mL (10-120); Glucose 54 mg/dL (70-105); Iron < 10 mcg/dL (50-170); Magnesium 1.5 mg/dL (1.6-2.6); Osmolality,Calculated 286 (280-300); Phosphorous 3.1 mg/dL (2.7-4.5); Potassium 3.2 mEq/L (3.5-5.1); Sodium 137 mEq/L (136-145); Transferrin 143 mg/dL (203-362); eGFR For African Americans > 60 (> 60); eGFR For Non-African Americans > 60 (> 60)
[2019-09-17] MEDS: Nicotine 14 MG PATCH.TD24 TD SCH (07:50)
[2019-09-17 08:04] LABS: Hematocrit 25.2 % (35.3-44.9); Hemoglobin 8.1 g/dL (11.5-15.4)
[2019-09-17] MEDS: Gabapentin 300 MG CAPSULE PO SCH ×3 (08:59→20:20)
[2019-09-17] MEDS: Iron Sucrose Complex 250 MG in 0.9 % Sodium Chloride 250 ML IVPB SCH (10:00)
[2019-09-17] MEDS ORDERED: *HR* Propofol 200 MG/20 ML VIAL IVP ONE (11:22)
[2019-09-17] MEDS ORDERED: Lidocaine -MPF 2% 2 ML VIAL ONE (11:22)
[2019-09-17] MEDS ORDERED: *HR* Succinylcholine 200 MG/10 ML VIAL IVP ONE (12:01)
[2019-09-17] MEDS ORDERED: *HR* PHENYLEPHRINE 1,000 MCG/10 ML SYRINGE IVP ONE (13:18)
[2019-09-17 13:33] LABS: Hematocrit 25.7 % (35.3-44.9); Hemoglobin 8.2 g/dL (11.5-15.4)
[2019-09-17] MEDS: D5% in 0.45% NACL w KCl 20 MEQ/1,000 ML MLS IVC SCH ×2 (15:35→23:40)
[2019-09-17 21:16] LABS: Hematocrit 26.7 % (35.3-44.9); Hemoglobin 8.3 g/dL (11.5-15.4)
[2019-09-17] MEDS: Sucralfate 1 GM TABLET PO SCH (23:40)
[2019-09-18 00:32] LABS: Bilirubin,Urine Small (Negative); Blood,Urine Moderate (Negative); Clarity,Urine Turbid (Clear); Color,Urine Dark Yellow (Yellow); Glucose,Urine (UA) Normal (Normal); Ketones,Urine Negative (Negative); Leukocyte Esterase,Urine Large (Negative); Nitrite,Urine Negative (Negative); PH,Urine 7.5 pH Units (5.0-8.0); Protein,Urine 30 mg/dL (Neg-Trace); Specific Gravity,Urine 1.019 (1.010-1.025); Urobilinogen,Urine Normal (Normal)
[2019-09-18 00:34] LABS: Bacteria,Urine Moderate per hpf (None-Few); Squamous Epithelial Cell,Urine Many per lpf (None-Few); WBC,Urine TNTC per hpf (0-3)
[2019-09-18 00:53] LABS: Hyaline Casts,Urine None Seen per lpf (None-Few)
[2019-09-18] MEDS ORDERED: Acetaminophen 325 MG TABLET PO ONE (01:02)
[2019-09-18 01:15] LABS: Hematocrit 25.9 % (35.3-44.9); Hemoglobin 8.1 g/dL (11.5-15.4); Mean Corpuscular HGB Conc 31.3 g/dL (31.6-35.5); Mean Corpuscular Hemoglobin 25.7 pg (28.0-33.3); Mean Corpuscular Volume 82.2 fL (83.0-100.0); Mean Platelet Volume 9.6 fL (9.4-12.4); Platelet Count 132 K/mcL (140-400); Red Blood Count 3.15 M/mcL (3.82-4.97); Red Cell Distribution Width 14.9 % (11.5-14.5); White Blood Count 10.9 K/mcL (4.3-11.1)
[2019-09-18 01:34] LABS: BUN/Creatinine Ratio 34 (6-26); Blood Urea Nitrogen 26 mg/dL (6-20); Calcium 7.5 mg/dL (8.6-10.3); Carbon Dioxide 20 mEq/L (23-29); Chloride 105 mEq/L (98-107); Glucose 145 mg/dL (70-105); Magnesium 1.8 mg/dL (1.6-2.6); Osmolality,Calculated 285 (280-300); Potassium 3.4 mEq/L (3.5-5.1); Sodium 134 mEq/L (136-145); eGFR For African Americans > 60 (> 60); eGFR For Non-African Americans > 60 (> 60)
[2019-09-18] MEDS: Nicotine 14 MG PATCH.TD24 TD SCH (01:59)
[2019-09-18] MEDS: Pantoprazole 40 MG VIAL IVP SCH ×2 (05:36→16:11)
[2019-09-18] MEDS ORDERED: Potassium Chloride 40 MEQ, Lidocaine 1% 2 ML in 0.9 % Sodium Chloride 500 ML IVPB ONE (07:48)
[2019-09-18] MEDS ORDERED: Calcium Gluconate 1gm/50mL BAG IVPB ONE (08:00)
[2019-09-18] MEDS ORDERED: Calcium Gluconate 1,000 MG/10 ML VIAL IVPB ONE (09:00)
[2019-09-18] MEDS: Sucralfate 1 GM TABLET PO SCH ×4 (09:43→20:06)
[2019-09-18] MEDS: cefTRIAXone 1,000 MG in 0.9 % Sodium Chloride Mini Bag 100 ML IVPB SCH (09:44)
[2019-09-18] MEDS: Magnesium Oxide 400 MG TABLET PO SCH ×2 (09:44→20:07)
[2019-09-18] MEDS: Gabapentin 300 MG CAPSULE PO SCH ×3 (09:44→20:07)
[2019-09-18] MEDS: D5% in 0.45% NACL w KCl 20 MEQ/1,000 ML MLS IVC SCH ×3 (11:26→20:07)
[2019-09-18] MEDS: Iron Sucrose Complex 250 MG in 0.9 % Sodium Chloride 250 ML IVPB SCH (16:06)
[2019-09-19 01:10] LABS: Hematocrit 25.1 % (35.3-44.9); Hemoglobin 7.7 g/dL (11.5-15.4); Mean Corpuscular HGB Conc 30.7 g/dL (31.6-35.5); Mean Corpuscular Hemoglobin 25.7 pg (28.0-33.3); Mean Corpuscular Volume 83.7 fL (83.0-100.0); Mean Platelet Volume 10.9 fL (9.4-12.4); Platelet Count 133 K/mcL (140-400); Red Cell Distribution Width 15.7 % (11.5-14.5)
[2019-09-19 01:11] LABS: White Blood Count 16.8 K/mcL (4.3-11.1)
[2019-09-19 01:30] LABS: BUN/Creatinine Ratio 33 (6-26); Blood Urea Nitrogen 26 mg/dL (6-20); Carbon Dioxide 21 mEq/L (23-29); Chloride 108 mEq/L (98-107); Glucose 118 mg/dL (70-105); Magnesium 1.4 mg/dL (1.6-2.6); Osmolality,Calculated 284 (280-300); Sodium 134 mEq/L (136-145); eGFR For African Americans > 60 (> 60); eGFR For Non-African Americans > 60 (> 60)
[2019-09-19 01:47] LABS: Thyroid Stimulating Hormone 1.07 mcIU/mL (0.340-5.600)
[2019-09-19] MEDS: D5% in 0.45% NACL w KCl 20 MEQ/1,000 ML MLS IVC SCH (04:36)
[2019-09-19] MEDS: Pantoprazole 40 MG VIAL IVP SCH (04:36)
[2019-09-19] MEDS: Sucralfate 1 GM TABLET PO SCH ×4 (08:18→21:39)
[2019-09-19] MEDS: Gabapentin 300 MG CAPSULE PO SCH ×3 (08:18→21:39)
[2019-09-19] MEDS: Cholecalciferol (D-3) 1,000 UNIT (25MCG) TABLET PO SCH (08:18)
[2019-09-19] MEDS: Magnesium Oxide 400 MG TABLET PO SCH ×2 (08:18→21:38)
[2019-09-19] MEDS: Nicotine 14 MG PATCH.TD24 TD SCH (08:19)
[2019-09-19] MEDS: cefTRIAXone 1,000 MG in 0.9 % Sodium Chloride Mini Bag 100 ML IVPB SCH (08:30)
[2019-09-19] MEDS ORDERED: Doxycycline 100 MG CAPSULE PO SCH (09:00)
[2019-09-19] MEDS: Iron Sucrose Complex 250 MG in 0.9 % Sodium Chloride 250 ML IVPB SCH (10:23)
[2019-09-19] MEDS: Vancomycin 500 MG in 0.9 % Sodium Chloride Mini Bag 100 ML IVPB SCH (18:40)
[2019-09-19] MEDS ORDERED: Vancomycin (wt based) 1,000 MG VIAL IVPB SCH (21:00)
[2019-09-19] MEDS: Cefepime HCl 1,000 MG in 0.9 % Sodium Chloride Mini Bag 100 ML IVPB SCH (23:56)
[2019-09-20] MEDS: Vancomycin 500 MG in 0.9 % Sodium Chloride Mini Bag 100 ML IVPB SCH (05:07)
[2019-09-20 05:58] LABS: Hemoglobin 7.9 g/dL (11.5-15.4)
[2019-09-20 06:00] LABS: Hematocrit 26.8 % (35.3-44.9); Immature Platelets 4.8 % (1.1-6.1); Mean Corpuscular HGB Conc 29.5 g/dL (31.6-35.5); Mean Corpuscular Hemoglobin 25.2 pg (28.0-33.3); Mean Corpuscular Volume 85.6 fL (83.0-100.0); Mean Platelet Volume 10.2 fL (9.4-12.4); Red Blood Count 3.13 M/mcL (3.82-4.97); Red Cell Distribution Width 16.3 % (11.5-14.5); White Blood Count 15.7 K/mcL (4.3-11.1)
[2019-09-20 06:09] LABS: BUN/Creatinine Ratio 39 (6-26); Blood Urea Nitrogen 21 mg/dL (6-20); Carbon Dioxide 21 mEq/L (23-29); Chloride 109 mEq/L (98-107); Glucose 85 mg/dL (70-105); Magnesium 1.2 mg/dL (1.6-2.6); Osmolality,Calculated 282 (280-300); Potassium 3.8 mEq/L (3.5-5.1); Sodium 135 mEq/L (136-145); eGFR For African Americans > 60 (> 60); eGFR For Non-African Americans > 60 (> 60)
[2019-09-20] MEDS: Sucralfate 1 GM TABLET PO SCH ×4 (06:29→20:35)
[2019-09-20] MEDS: Cefepime HCl 1,000 MG in 0.9 % Sodium Chloride Mini Bag 100 ML IVPB SCH (07:58)
[2019-09-20] MEDS: Nicotine 14 MG PATCH.TD24 TD SCH (07:58)
[2019-09-20] MEDS: Magnesium Oxide 400 MG TABLET PO SCH ×2 (07:58→20:35)
[2019-09-20] MEDS: Cholecalciferol (D-3) 1,000 UNIT (25MCG) TABLET PO SCH (07:59)
[2019-09-20] MEDS: Gabapentin 300 MG CAPSULE PO SCH ×3 (08:00→20:35)
[2019-09-20 11:07] LABS: Creatine Kinase 10 Units/L (30-223)
[2019-09-20] MEDS ORDERED: 0.9 % Sodium Chloride 250 ML ONE (12:38)
[2019-09-20] MEDS: *HR* OxyCODONE Immed Rel 5 MG TABLET PO PRN ×2 (13:16→20:33)
[2019-09-20 13:55] LABS: C-Reactive Protein 243 mg/L (Less than 10)
[2019-09-20] MEDS ORDERED: Piperacillin/Tazobactam 3.375 GM in 0.9 % Sodium Chloride Mini Bag 100 ML IVPB SCH (16:00)
[2019-09-20] MEDS: Clindamycin 600 MG/50 ML 600 MG/50 ML IV.SOLN IVPB SCH ×2 (16:13→22:31)
[2019-09-20 18:24] VITALS: BP 103/60
[2019-09-20] MEDS ORDERED: Aminoglycoside Consult 1 EACH MC ONE (23:09)
== END 2019-09-20 23:10 | disposition critical access hospital (66) | DRG 377 ==
LOC: 3BNU 16:55 → EMEROOARM 16:55 → 3BNU 21:23
PROVIDERS: ADMIT Family Medicine; ATTEND Family Medicine
PROC: ENDOEBX (2019-09-17 12:00)

== ENCOUNTER 2019-11-02 10:04 | Inpatient (IN) ==
[2019-11-02 12:30] LABS: Basophils % 0.2 %; Eosinophils % 0.4 %; Hematocrit 32.8 % (35.3-44.9); Hemoglobin 9.6 g/dL (11.5-15.4); Immature Granulocytes % 0.6 % (0-4); Lymphocytes # 1.1 K/mcL (0.6-4.6); Lymphocytes % 21.3 %; Mean Corpuscular HGB Conc 29.3 g/dL (31.6-35.5); Mean Corpuscular Hemoglobin 26.3 pg (28.0-33.3); Mean Corpuscular Volume 89.9 fL (83.0-100.0); Mean Platelet Volume 8.2 fL (9.4-12.4); Monocytes # 0.3 K/mcL (0.0-1.3); Monocytes % 5.6 %; Neutrophils # 3.6 K/mcL (1.6-8.9); Platelet Count 403 K/mcL (140-400); Red Blood Count 3.65 M/mcL (3.82-4.97); Red Cell Distribution Width 17.1 % (11.5-14.5); Segmented Neutrophils % 71.9 %
[2019-11-02] MEDS ORDERED: *HR* LORazepam 2 MG/ML VIAL IVP ONE (12:36)
[2019-11-02] MEDS ORDERED: Isovue-370 500 ML BOTTLE IVP ONE (13:01)
[2019-11-02 13:03] LABS: Alanine Aminotransferase 33 Units/L (7-52); Albumin 3.3 g/dL (3.5-5.7); Albumin/Globulin Ratio 0.7 (1.1-2.2); Alkaline Phosphatase 22 Units/L (34-104); Aspartate Amino Transferase 47 Units/L (13-39); BUN/Creatinine Ratio 30 (6-26); Bilirubin,Total 0.2 mg/dL (0.3-1.0); Blood Urea Nitrogen 18 mg/dL (6-20); Calcium 8.8 mg/dL (8.6-10.3); Carbon Dioxide 23 mEq/L (23-29); Chloride 103 mEq/L (98-107); Globulin 4.5 g/dL (2.4-3.5); Glucose 100 mg/dL (70-105); Osmolality,Calculated 282 (280-300); Potassium 3.9 mEq/L (3.5-5.1); Sodium 135 mEq/L (136-145); Total Protein 7.8 g/dL (6.4-8.9); eGFR For African Americans > 60 (> 60); eGFR For Non-African Americans > 60 (> 60)
[2019-11-02 13:28] LABS: Lipase < 3 Units/L (11-82)
[2019-11-02] MEDS: FentaNYL (PF) 1,000 MCG/100 ML IV.SOLN IVC SCH ×2 (13:43→19:31)
[2019-11-02] MEDS ORDERED: methylPREDNISolone 125 MG/2 ML VIAL IVP ONE (13:49)
[2019-11-02] MEDS ORDERED: Ipratropium/Albuterol Neb 3 ML IH ONE (13:58)
[2019-11-02] MEDS ORDERED: *HR* Rocuronium Bromide 50 MG/5 ML VIAL IVP ONE (14:04)
[2019-11-02] MEDS ORDERED: *HR* Etomidate 20 MG/10 ML AMPUL IVP ONE (14:04)
[2019-11-02] MEDS ORDERED: 0.9 % Sodium Chloride 1,000 ML IV ONE (14:44)
[2019-11-02] MEDS ORDERED: 0.9 % Sodium Chloride 1,000 ML ONE (14:46)
[2019-11-02 14:47] LABS: INR 1.1; Prothrombin Time 12.4 Seconds (9.4-12.1)
[2019-11-02 14:52] LABS: ABG Base Excess -9 mEq/L (-2 to 3); ABG HCO3 23 mEq/L (21-27); ABG Oxygen Saturation 86 % (95-98); ABG PCO2 77 mmHg (35-45); ABG PH 7.08 pH Units (7.32-7.45); ABG PO2 73 mmHg (85-104); ABG TCO2 25 mEq/L (20-26); Blood Gas Modality ASSIST CONTROL
[2019-11-02] MEDS ORDERED: Artificial Tears SOLN 15 ML BOTTLE BOTH EYES PRN (15:21)
[2019-11-02] MEDS ORDERED: Furosemide 40 MG/4 ML VIAL IVP ONE (15:29)
[2019-11-02] MEDS: Ipratropium/Albuterol Neb 3 ML IH SCH ×3 (15:49→23:15)
[2019-11-02 16:10] LABS: ABG Base Excess -6 mEq/L (-2 to 3); ABG HCO3 22 mEq/L (21-27); ABG Oxygen Saturation 99 % (95-98); ABG PCO2 56 mmHg (35-45); ABG PH 7.21 pH Units (7.32-7.45); ABG PO2 198 mmHg (85-104); ABG TCO2 24 mEq/L (20-26); Blood Gas Modality VC; Blood Gas VT 450 cc
[2019-11-02] MEDS: MethylPREDNISolone 40 MG/ML VIAL IVP SCH (16:25)
[2019-11-02] MEDS: Artificial Tears SOLN 15 ML BOTTLE BOTH EYES SCH ×2 (16:27→19:24)
[2019-11-02 18:19] LABS: ABG Base Excess -3 mEq/L (-2 to 3); ABG HCO3 24 mEq/L (21-27); ABG Oxygen Saturation 92 % (95-98); ABG PCO2 55 mmHg (35-45); ABG PH 7.26 pH Units (7.32-7.45); ABG PO2 75 mmHg (85-104); ABG TCO2 26 mEq/L (20-26); Blood Gas Modality VC; Blood Gas VT 450 cc
[2019-11-02] MEDS: Chlorhexidine Rinse 15 ML MOUTHWASH MM SCH (19:24)
[2019-11-02 20:44] LABS: Bilirubin,Urine Negative (Negative); Blood,Urine Trace-lysed (Negative); Clarity,Urine Clear (Clear); Color,Urine Yellow (Yellow); Glucose,Urine (UA) Normal (Normal); Ketones,Urine Trace mg/dL (Negative); Leukocyte Esterase,Urine Negative (Negative); Nitrite,Urine Negative (Negative); Protein,Urine 30 mg/dL (Neg-Trace); Specific Gravity,Urine 1.015 (1.010-1.025); Urobilinogen,Urine Normal (Normal)
[2019-11-02 21:08] LABS: Squamous Epithelial Cell,Urine Moderate per lpf (None-Few)
[2019-11-02 21:09] LABS: Granular Casts,Urine Few per lpf (None Seen)
[2019-11-02 21:11] LABS: Bacteria,Urine Few per hpf (None-Few)
[2019-11-02] MEDS: Doxycycline 100 MG in 0.9 % Sodium Chloride Mini Bag 100 ML IVPB SCH (21:59)
[2019-11-02] MEDS: *HR* Heparin 5,000 UNIT/ML VIAL SQ SCH (22:00)
[2019-11-03] MEDS: Artificial Tears SOLN 15 ML BOTTLE BOTH EYES SCH ×7 (00:23→23:19)
[2019-11-03] MEDS: MethylPREDNISolone 40 MG/ML VIAL IVP SCH ×4 (00:23→23:19)
[2019-11-03] MEDS: FentaNYL (PF) 2,500 MCG/50 ML IV.SOLN IVC SCH ×2 (01:03→09:02)
[2019-11-03] MEDS: Ipratropium/Albuterol Neb 3 ML IH SCH ×5 (03:35→20:01)
[2019-11-03 04:54] LABS: ABG Base Excess -1 mEq/L (-2 to 3); ABG HCO3 25 mEq/L (21-27); ABG Oxygen Saturation 94 % (95-98); ABG PCO2 50 mmHg (35-45); ABG PH 7.31 pH Units (7.32-7.45); ABG PO2 80 mmHg (85-104); ABG TCO2 27 mEq/L (20-26); Blood Gas Modality VC; Blood Gas VT 450 cc
[2019-11-03 05:18] LABS: Hemoglobin 9.4 g/dL (11.5-15.4); Mean Corpuscular HGB Conc 29.4 g/dL (31.6-35.5); Mean Corpuscular Hemoglobin 26.7 pg (28.0-33.3); Mean Corpuscular Volume 90.9 fL (83.0-100.0); Mean Platelet Volume 8.5 fL (9.4-12.4); Platelet Count 381 K/mcL (140-400); Red Blood Count 3.52 M/mcL (3.82-4.97); Red Cell Distribution Width 17.3 % (11.5-14.5); White Blood Count 3.6 K/mcL (4.3-11.1)
[2019-11-03 05:38] LABS: BUN/Creatinine Ratio 36 (6-26); Blood Urea Nitrogen 20 mg/dL (6-20); Calcium 8.5 mg/dL (8.6-10.3); Carbon Dioxide 20 mEq/L (23-29); Chloride 107 mEq/L (98-107); Glucose 133 mg/dL (70-105); Osmolality,Calculated 289 (280-300); Sodium 137 mEq/L (136-145); eGFR For African Americans > 60 (> 60); eGFR For Non-African Americans > 60 (> 60)
[2019-11-03] MEDS: Doxycycline 100 MG in 0.9 % Sodium Chloride Mini Bag 100 ML IVPB SCH ×2 (05:45→18:15)
[2019-11-03] MEDS: *HR* Heparin 5,000 UNIT/ML VIAL SQ SCH ×3 (05:45→21:32)
[2019-11-03 07:26] LABS: Troponin I 0.51 ng/mL (< 0.04)
[2019-11-03] MEDS: Chlorhexidine Rinse 15 ML MOUTHWASH MM SCH ×2 (07:46→19:45)
[2019-11-03] MEDS: Pantoprazole 40 MG VIAL IVP SCH (07:46)
[2019-11-03] MEDS ORDERED: Haloperidol Lactate 5 MG/ML VIAL IVP PRN (09:25)
[2019-11-03] MEDS ORDERED: Furosemide 40 MG/4 ML VIAL IVP ONE (09:25)
[2019-11-03] MEDS: Dexmedetomidine HCl 400 MCG/100 ML MLS IVC SCH (10:11)
[2019-11-03] MEDS ORDERED: *HR* Midazolam HCl 2 MG/2 ML VIAL IVP ONE (19:14)
[2019-11-03] MEDS: *HR* Midazolam HCl 2 MG/2 ML VIAL IVP PRN (23:22)
[2019-11-04] MEDS: Ipratropium/Albuterol Neb 3 ML IH SCH ×3 (00:22→07:33)
[2019-11-04] MEDS: FentaNYL (PF) 2,500 MCG/50 ML IV.SOLN IVC SCH (02:32)
[2019-11-04] MEDS: *HR* Midazolam HCl 2 MG/2 ML VIAL IVP PRN (03:51)
[2019-11-04] MEDS: Artificial Tears SOLN 15 ML BOTTLE BOTH EYES SCH ×3 (03:52→10:16)
[2019-11-04 04:51] LABS: ABG Base Excess 4 mEq/L (-2 to 3); ABG HCO3 29 mEq/L (21-27); ABG Oxygen Saturation 85 % (95-98); ABG PCO2 49 mmHg (35-45); ABG PH 7.38 pH Units (7.32-7.45); ABG PO2 51 mmHg (85-104); ABG TCO2 31 mEq/L (20-26); Blood Gas VT 450 cc
[2019-11-04] MEDS: Doxycycline 100 MG in 0.9 % Sodium Chloride Mini Bag 100 ML IVPB SCH (05:01)
[2019-11-04] MEDS: *HR* Heparin 5,000 UNIT/ML VIAL SQ SCH ×3 (05:02→20:18)
[2019-11-04 05:47] LABS: Hematocrit 31.8 % (35.3-44.9); Hemoglobin 9.5 g/dL (11.5-15.4); Mean Corpuscular HGB Conc 29.9 g/dL (31.6-35.5); Mean Corpuscular Hemoglobin 27.1 pg (28.0-33.3); Mean Corpuscular Volume 90.6 fL (83.0-100.0); Mean Platelet Volume 8.6 fL (9.4-12.4); Platelet Count 390 K/mcL (140-400); Red Blood Count 3.51 M/mcL (3.82-4.97); Red Cell Distribution Width 17.9 % (11.5-14.5)
[2019-11-04 05:50] LABS: White Blood Count 5.7 K/mcL (4.3-11.1)
[2019-11-04 06:02] LABS: BUN/Creatinine Ratio 54 (6-26); Blood Urea Nitrogen 30 mg/dL (6-20); Calcium 8.9 mg/dL (8.6-10.3); Carbon Dioxide 27 mEq/L (23-29); Chloride 108 mEq/L (98-107); Glucose 185 mg/dL (70-105); Osmolality,Calculated 303 (280-300); Potassium 4.3 mEq/L (3.5-5.1); Sodium 141 mEq/L (136-145); eGFR For African Americans > 60 (> 60); eGFR For Non-African Americans > 60 (> 60)
[2019-11-04] MEDS: Dexmedetomidine HCl 400 MCG/100 ML MLS IVC SCH (07:21)
[2019-11-04] MEDS: Pantoprazole 40 MG VIAL IVP SCH (07:21)
[2019-11-04] MEDS: MethylPREDNISolone 40 MG/ML VIAL IVP SCH (07:21)
[2019-11-04] MEDS: Chlorhexidine Rinse 15 ML MOUTHWASH MM SCH (07:21)
[2019-11-04] MEDS ORDERED: Ipratropium/Albuterol Neb 3 ML IH SCH (12:00)
[2019-11-04] MEDS: *HR* LORazepam 2 MG/ML VIAL IVP PRN ×3 (17:01→22:20)
[2019-11-04] MEDS: Doxycycline 100 MG CAPSULE PO SCH (20:09)
[2019-11-04] MEDS ORDERED: Doxycycline 100 MG CAPSULE PO SCH (21:00)
[2019-11-04] MEDS ORDERED: *HR* OxyCODONE Immed Rel 5 MG TABLET PO ONE (22:31)
[2019-11-05] MEDS: *HR* LORazepam 2 MG/ML VIAL IVP PRN (01:08)
[2019-11-05] MEDS: *HR* Heparin 5,000 UNIT/ML VIAL SQ SCH ×3 (03:16→21:01)
[2019-11-05 04:01] LABS: Hematocrit 33.7 % (35.3-44.9); Hemoglobin 9.9 g/dL (11.5-15.4); Mean Corpuscular HGB Conc 29.4 g/dL (31.6-35.5); Mean Corpuscular Hemoglobin 26.4 pg (28.0-33.3); Mean Corpuscular Volume 89.9 fL (83.0-100.0); Mean Platelet Volume 8.3 fL (9.4-12.4); Platelet Count 464 K/mcL (140-400); Red Blood Count 3.75 M/mcL (3.82-4.97); Red Cell Distribution Width 18.5 % (11.5-14.5)
[2019-11-05 04:02] LABS: White Blood Count 10.8 K/mcL (4.3-11.1)
[2019-11-05 04:17] LABS: BUN/Creatinine Ratio 75 (6-26); Blood Urea Nitrogen 39 mg/dL (6-20); Calcium 8.4 mg/dL (8.6-10.3); Carbon Dioxide 24 mEq/L (23-29); Chloride 109 mEq/L (98-107); Glucose 79 mg/dL (70-105); Osmolality,Calculated 298 (280-300); Potassium 3.7 mEq/L (3.5-5.1); Sodium 140 mEq/L (136-145); eGFR For African Americans > 60 (> 60); eGFR For Non-African Americans > 60 (> 60)
[2019-11-05] MEDS ORDERED: *HR* OxyCODONE Immed Rel 5 MG TABLET PO ONE (05:50)
[2019-11-05] MEDS: Doxycycline 100 MG CAPSULE PO SCH (07:35)
[2019-11-05] MEDS ORDERED: MethylPREDNISolone 40 MG/ML VIAL IVP SCH ×2 (09:00)
[2019-11-05] MEDS: Furosemide 40 MG/4 ML VIAL IVP SCH ×2 (09:43→21:01)
[2019-11-05] MEDS: Ipratropium/Albuterol Neb 3 ML IH SCH ×5 (09:56→23:21)
[2019-11-05] MEDS ORDERED: Nicotine 2 MG GUM BC PRN (14:44)
[2019-11-05] MEDS: Nicotine 21 MG PATCH.TD24 TD SCH (15:30)
[2019-11-05] MEDS: levoFLOXacin 750 MG/150 ML 750 MG/150 ML BAG IVPB SCH (17:16)
[2019-11-05] MEDS ORDERED: Melatonin 3 MG TABLET PO ONE (23:18)
[2019-11-06] MEDS ORDERED: *HR* OxyCODONE Immed Rel 5 MG TABLET PO ONE (02:04)
[2019-11-06] MEDS: *HR* LORazepam 2 MG/ML VIAL IVP PRN ×4 (03:47→22:49)
[2019-11-06] MEDS: Ipratropium/Albuterol Neb 3 ML IH SCH ×4 (03:53→15:30)
[2019-11-06] MEDS: *HR* Heparin 5,000 UNIT/ML VIAL SQ SCH ×3 (05:29→22:43)
[2019-11-06 05:43] LABS: Hematocrit 40.2 % (35.3-44.9); Mean Corpuscular HGB Conc 30.1 g/dL (31.6-35.5); Mean Corpuscular Hemoglobin 26.5 pg (28.0-33.3); Mean Corpuscular Volume 88.2 fL (83.0-100.0); Mean Platelet Volume 8.2 fL (9.4-12.4); Platelet Count 443 K/mcL (140-400); Red Blood Count 4.56 M/mcL (3.82-4.97); Red Cell Distribution Width 17.8 % (11.5-14.5); White Blood Count 7.6 K/mcL (4.3-11.1)
[2019-11-06 05:44] LABS: Hemoglobin 12.1 g/dL (11.5-15.4)
[2019-11-06 06:03] LABS: BUN/Creatinine Ratio 45 (6-26); Blood Urea Nitrogen 26 mg/dL (6-20); Calcium 8.8 mg/dL (8.6-10.3); Carbon Dioxide 25 mEq/L (23-29); Chloride 103 mEq/L (98-107); Glucose 119 mg/dL (70-105); Osmolality,Calculated 294 (280-300); Potassium 3.9 mEq/L (3.5-5.1); Sodium 139 mEq/L (136-145); eGFR For African Americans > 60 (> 60); eGFR For Non-African Americans > 60 (> 60)
[2019-11-06] MEDS: levoFLOXacin 750 MG/150 ML 750 MG/150 ML BAG IVPB SCH (09:51)
[2019-11-06] MEDS: predniSONE 20 MG TABLET PO SCH (09:52)
[2019-11-06] MEDS: Furosemide 40 MG/4 ML VIAL IVP SCH (09:52)
[2019-11-06] MEDS: Nicotine 21 MG PATCH.TD24 TD SCH (09:53)
[2019-11-06] MEDS: *HR* OxyCODONE Immed Rel 5 MG TABLET PO PRN ×4 (10:01→22:49)
[2019-11-06] MEDS ORDERED: Ipratropium/Albuterol Neb 3 ML IH PRN ×2 (15:40→16:56)
[2019-11-06] MEDS: Budesonide/Formoterol 160/4.5 1 PUFF INH IH SCH (19:50)
[2019-11-07] MEDS: *HR* LORazepam 2 MG/ML VIAL IVP PRN ×4 (04:11→23:08)
[2019-11-07] MEDS: *HR* OxyCODONE Immed Rel 5 MG TABLET PO PRN ×5 (04:12→23:07)
[2019-11-07] MEDS: *HR* Heparin 5,000 UNIT/ML VIAL SQ SCH ×3 (05:46→23:08)
[2019-11-07] MEDS: Budesonide/Formoterol 160/4.5 1 PUFF INH IH SCH ×2 (07:40→22:36)
[2019-11-07] MEDS: predniSONE 20 MG TABLET PO SCH (08:26)
[2019-11-07] MEDS: Nicotine 21 MG PATCH.TD24 TD SCH (08:27)
[2019-11-07] MEDS: levoFLOXacin 750 MG/150 ML 750 MG/150 ML BAG IVPB SCH (08:27)
[2019-11-07] MEDS: Aspirin 81 MG TAB.CHEW PO SCH (13:14)
[2019-11-07] MEDS: Ringers Solution, Lactated 500 ML IVC SCH ×3 (18:04→23:08)
[2019-11-08] MEDS: *HR* OxyCODONE Immed Rel 5 MG TABLET PO PRN ×4 (03:34→18:58)
[2019-11-08] MEDS: *HR* LORazepam 2 MG/ML VIAL IVP PRN (03:35)
[2019-11-08] MEDS: Ringers Solution, Lactated 500 ML IVC SCH ×2 (03:35→21:31)
[2019-11-08] MEDS: Budesonide/Formoterol 160/4.5 1 PUFF INH IH SCH ×2 (08:05→20:06)
[2019-11-08] MEDS: *HR* Heparin 5,000 UNIT/ML VIAL SQ SCH ×3 (09:13→21:19)
[2019-11-08] MEDS: Nicotine 21 MG PATCH.TD24 TD SCH (09:13)
[2019-11-08] MEDS: levoFLOXacin 750 MG/150 ML 750 MG/150 ML BAG IVPB SCH (09:14)
[2019-11-08] MEDS: Aspirin 81 MG TAB.CHEW PO SCH (09:14)
[2019-11-08] MEDS: predniSONE 20 MG TABLET PO SCH (09:15)
[2019-11-08] MEDS ORDERED: *HR* LORazepam 0.5 MG TABLET PO PRN (11:26)
[2019-11-08] MEDS ORDERED: Nicotine 21 MG PATCH.TD24 TD ONE (21:50)
[2019-11-09] MEDS: *HR* OxyCODONE Immed Rel 5 MG TABLET PO PRN ×3 (01:55→14:21)
[2019-11-09] MEDS: *HR* Heparin 5,000 UNIT/ML VIAL SQ SCH (01:59)
[2019-11-09] MEDS: Budesonide/Formoterol 160/4.5 1 PUFF INH IH SCH (07:55)
[2019-11-09] MEDS ORDERED: levoFLOXacin 750 MG TABLET PO SCH (09:00)
[2019-11-09] MEDS: Aspirin 81 MG TAB.CHEW PO SCH (09:14)
[2019-11-09] MEDS: predniSONE 20 MG TABLET PO SCH (09:14)
[2019-11-09] MEDS: Nicotine 21 MG PATCH.TD24 TD SCH (09:15)
[2019-11-09 10:14] VITALS: BP 112/68
== END 2019-11-09 14:53 | DRG 208 ==
LOC: EMEROOARM 10:04 → ICNU 15:10 → 3ANU 11-04 12:44
PROVIDERS: ADMIT Internal Medicine; ATTEND Internal Medicine